=== PATIENT | female | born 1990 | race Caucasian/White ===

== ENCOUNTER → 2016-07-06 | Outpatient (CLI) | payer OTHER ==
[~2016-07-06] MED LIST: ACET50TA PO; DOCU10CA PO; FIOR1CAP PO; IBUP800T23 PO; IBUP80TA PO; PREN29TA4 PO; STOO100C PO; TYLE325T5 PO
[2016-07-06 16:42] LABS: ALBUMIN 3.5 GM/DL (3.2-5.2); ALBUMIN/GLOBULIN RATIO 1.06 (1.00-1.93); ALKALINE PHOSPHATASE 197 U/L (45-117); ALT/SGPT 19 U/L (12-78); ANION GAP 8 MEQ/L (8-16); AST/SGOT 15 U/L (15-37); BILIRUBIN,TOTAL 0.3 MG/DL (0.2-1.0); BLOOD UREA NITROGEN 11 MG/DL (7-18); CALCIUM LEVEL 8.8 MG/DL (8.5-10.1); CARBON DIOXIDE LEVEL 26 MEQ/L (21-32); CHLORIDE LEVEL 108 MEQ/L (98-107); CHOLESTEROL LEVEL 103 MG/DL (<200); CREATININE FOR GFR 0.66 MG/DL (0.55-1.02); GLOMERULAR FILTRATION RATE > 60.0 (>60); GLUCOSE, FASTING 96 MG/DL (70-105); POTASSIUM SERUM 4.9 MEQ/L (3.5-5.1); SODIUM LEVEL 142 MEQ/L (136-145); TOTAL PROTEIN 6.8 GM/DL (6.4-8.2); TRIGLYCERIDES LEVEL 168 MG/DL (<150)
[2016-07-06 16:46] LABS: BASO % 0.3 % (0.0-1.0); EOS # 0.2 K/mm3 (0.0-0.50); LARGE UNSTAINED CELL # 0.1 K/mm3 (0.0-0.4); LYMPH # 2.4 K/mm3 (1.5-6.5); LYMPH % 23.4 % (24.0-44.0); MEAN CORPUSCULAR HGB CONC 32.1 g/dl (32.0-36.5); MEAN CORPUSCULAR VOLUME 80.9 fl (80.0-96.0); MONO # 0.5 K/mm3 (0.0-0.8); MONO % 5.1 % (0.0-5.0); NEUTROPHILS # 6.6 K/mm3 (1.8-7.7); NEUTROPHILS % 68.2 % (36.0-66.0); PLATELET COUNT, AUTOMATED 330 k/mm3 (150-450); RED CELL DISTRIBUTION WIDTH 13.9 % (11.5-14.5); WHITE BLOOD COUNT 9.6 K/mm3 (4.0-10.0)
== END ==
LOC: M SMT 11:35
PROVIDERS: ATTEND Family Medicine Addiction Medicine
DX: Z00.00 Encounter for general adult medical examination without abnormal findings (principal); Z13.29 Encounter for screening for other suspected endocrine disorder; Z13.0 Encounter for screening for diseases of the blood and blood-forming organs and certain disorders involving the immune mechanism; F32.9 Major depressive disorder, single episode, unspecified

== ENCOUNTER → 2016-07-13 | Outpatient (CLI) | payer OTHER ==
--- NOTE | 2016-07-13 15:52 | REP ---
MRI LUMBAR SPINE WITHOUT CONTRAST: HISTORY: Back pain. There is no disc bulge or herniation at the L1-2 through L3-4 and L5-S1 levels. The nerves exit the neural foramina without compression. A diffuse disc bulge is present at the L4-5 level. There is minimal compression of the thecal sac. The L4 nerves exit the neural foramina without compression. The conus medullaris is normal in appearance terminating at the level of the T12-L1 intervertebral disc. Normal signal intensity is present in the lumbar intervertebral discs and vertebral bodies. IMPRESSION: Diffuse disc bulge at the L4-5 level with minimal thecal sac compression. Signed by Perry Florian MD 07/13/2016 04:10 P
== END ==
LOC: M RAD 14:16
PROVIDERS: ATTEND Family Medicine Addiction Medicine
DX: M51.06 Intervertebral disc disorders with myelopathy, lumbar region (principal)

== ENCOUNTER → 2016-08-11 | Outpatient (CLI) | payer OTHER ==
[2016-08-11 14:08] LABS: ALBUMIN 3.5 GM/DL (3.2-5.2); ALBUMIN/GLOBULIN RATIO 1.03 (1.00-1.93); ALKALINE PHOSPHATASE 204 U/L (45-117); ALT/SGPT 21 U/L (12-78); ANION GAP 9 MEQ/L (8-16); AST/SGOT 18 U/L (15-37); BILIRUBIN,TOTAL 0.4 MG/DL (0.2-1.0); BLOOD UREA NITROGEN 7 MG/DL (7-18); CALCIUM LEVEL 9.1 MG/DL (8.5-10.1); CARBON DIOXIDE LEVEL 26 MEQ/L (21-32); CHLORIDE LEVEL 106 MEQ/L (98-107); CREATININE FOR GFR 0.57 MG/DL (0.55-1.02); GLOMERULAR FILTRATION RATE > 60.0 (>60); GLUCOSE, FASTING 89 MG/DL (70-105); POTASSIUM SERUM 4.3 MEQ/L (3.5-5.1); SODIUM LEVEL 141 MEQ/L (136-145); TOTAL PROTEIN 6.9 GM/DL (6.4-8.2)
== END ==
LOC: M SMT 11:01
PROVIDERS: ATTEND Family Medicine Addiction Medicine
DX: R94.5 Abnormal results of liver function studies (principal)

== ENCOUNTER → 2016-09-15 | Outpatient (CLI) | payer OTHER ==
--- NOTE | 2016-09-15 09:39 | REP ---
Clinical: Abnormal liver function tests. Comparison: 11/17/2014. Findings: The liver is normal in contour, size, and overall echo texture with a 9 mm hyperechoic focus in the inferior aspect of the right lobe suggesting small hemangioma. Visualized portions of the pancreas are normal, but incompletely evaluated due to interposed bowel gas. The gallbladder again demonstrates a small 4 mm benign appearing polyp essentially unchanged from prior examination. No gallstones, wall thickening, or pericholecystic fluid is appreciated. No biliary ductal dilatation is noted and the common bile duct measures 2.1 mm diameter. The right kidney demonstrates increased medullary echo texture suggesting the possibility of underlying medullary nephrocalcinosis without hydronephrosis. Right kidney measures 11.8 x 6.1 x 4.8 cm. No ascites. Impression: 1. Liver demonstrates 9 mm benign hemangioma. 2. Gallbladder demonstrates relatively stable 4 mm benign appearing polyp. 3. Suggestions for medullary nephrocalcinosis without hydronephrosis or obvious focal nephrolithiasis. Signed by Josh Rae MD 09/15/2016 09:31 A
== END ==
LOC: M RAD 08:44
PROVIDERS: ATTEND Family Medicine Addiction Medicine
DX: R94.5 Abnormal results of liver function studies (principal); D18.00 Hemangioma unspecified site; K82.4 Cholesterolosis of gallbladder; E83.59 Other disorders of calcium metabolism

== ENCOUNTER → 2016-11-02 | Outpatient (REF) | payer OTHER ==
[~2016-11-02] MED LIST changes: +ALLO100T PO; +BACT800T5 PO; +FLOM5CAP PO; +IBUP1TAB7 PO; -IBUP800T23 PO; +KETO10TAB PO; +MULT1CHW26 PO; +NORC1TAB4 PO; +POTA4.25 PO; +TESS100C PO; +VICO5TAB16 PO
== END ==
LOC: M LAB REF 17:01
PROVIDERS: ATTEND Obstetrics & Gynecology
DX: Z12.4 Encounter for screening for malignant neoplasm of cervix (principal)

== ENCOUNTER → 2016-11-27 | Outpatient (CLI) | payer OTHER ==
--- NOTE | 2016-11-27 12:18 | REP ---
RENAL AND BLADDER ULTRASOUND: Real-time sonographic evaluation of kidneys performed and demonstrates both kidneys to be normal in size and echotexture, right kidney measuring 11.0 x 6.3 x 5.2 cm, and left kidney 11.3 x 5.7 x 6.1 cm. There is no hydronephrosis of the right kidney. Left kidney demonstrates very mild pelvocaliectasis in the lower pole without other evidence of hydronephrosis. No definite renal stones are seen. Urinary bladder is not optimally distended and not optimally evaluated, although bilateral ureteral jets are seen in the urinary bladder with Doppler color evaluation. IMPRESSION: Very mild left lower pole pelvocaliectasis. Otherwise, no evidence of hydronephrosis. No definite renal stones seen sonographically. There are bilateral ureteral jets in the urinary bladder. Signed by Chris Shah MD 11/28/2016 08:39 A
== END ==
LOC: M RAD 10:26
PROVIDERS: ATTEND Internal Medicine Nephrology
DX: N20.0 Calculus of kidney (principal)

== ENCOUNTER 2017-01-09 19:56 | Emergency (ER) | payer OTHER ==
[~2017-01-09] VITALS: Ht 175.3 cm; Wt 88.6 kg
[~2017-01-09 19:56] MED LIST changes: -ALLO100T PO; -BACT800T5 PO; -FLOM5CAP PO; -KETO10TAB PO; -MULT1CHW26 PO; -NORC1TAB4 PO; -POTA4.25 PO; -TESS100C PO; -VICO5TAB16 PO
[2017-01-09 20:10] VITALS: BP 143/75
[2017-01-09] MEDS ORDERED: POTA4.25 PO (20:17)
[2017-01-09] MEDS ORDERED: ALLO100T PO (20:17)
[2017-01-09] MEDS ORDERED: KETOROLAC 30 MG/ML VIAL (J1885) IV ONE (22:30)
[2017-01-09] MEDS ORDERED: KETOROLAC 30 MG/ML VIAL (J1885) IM ONE (23:15)
[2017-01-10 00:25] LABS: CONTROL LINE UCG INT CTR LINE PRESENT
[2017-01-10] MEDS ORDERED: TESS100C PO (00:30)
[2017-01-10 00:31] LABS: CALCIUM OXALATE CRYSTALS SMALL
--- NOTE | 2017-01-10 01:53 | REPUSA ---
CLINICAL HISTORY: Left flank pain. TECHNIQUE: Multiple axial, sagittal and coronal CT images were obtained through the abdomen and pelvi s without administration of oral or IV contrast material. COMMENTS: 4.2 mm obstructing stone of the left ureter at L3 level. Moderate left hydroureteronephrosis. Left renal stones with the largest measuring 7 mm. The liver is of uniform attenuation without mass or defect. There is no intra or extrahepatic biliary ductal dilatation. The spleen is normal. The gallbladder is within normal limits. The pancreas is of normal contour and attenuation characteristics. There is no evidence of adrenal mass. There is no evidence for appendicitis. There is no bowel wall thickening. No evidence for small or la rge bowel obstruction. There is no evidence of abdominal ascites or lymphadenopathy. There is no evidence of intrinsic or extrinsic bladder mass. There is no pelvic ascites or lymphadeno kong. Images of the lung bases show no evidence of pleural or parenchymal mass. There are no pleural effusi ons. The bony structures are free of lytic or blastic lesions. Multilevel degenerative changes are seen in volving the thoracolumbar spine. Scattered calcifications are seen involving the aorta and major branches compatible with atherosclero sis. IMPRESSION: Obstructing stone in the proximal left ureter. Left nephrolithiasis. Thank you for your kind referral of this patient.
[2017-01-10] MEDS ORDERED: NORCO, ANEXSIA 5/325MG TABLET (HYDROcodone/ACETAMINOPHEN) PO ONE (02:30)
[2017-01-10] MEDS ORDERED: ONDANSETRON 4 MG ORAL DISINTEGRATING TAB (S0181) SL ONE (02:30)
[2017-01-29] MEDS ORDERED: MULT1CHW26 PO (07:55)
== END 2017-01-10 03:06 | disposition home or self-care (01) ==
LOC: M ED 19:56
DX: N13.2 Hydronephrosis with renal and ureteral calculous obstruction (principal); N23 Unspecified renal colic; R30.0 Dysuria; Z87.442 Personal history of urinary calculi; Z87.891 Personal history of nicotine dependence; Z79.899 Other long term (current) drug therapy
CPT/HCPCS: 74176; 81001; 81025; 84703; 87086; 96372; 99283; J1885

== ENCOUNTER 2017-01-20 19:50 | Emergency (ER) | payer OTHER ==
[~2017-01-20] VITALS: Ht 154.9 cm; Wt 88.2 kg
[~2017-01-20 19:50] MED LIST changes: +ALLO100T PO; +POTA4.25 PO; +TESS100C PO
[2017-01-20] MEDS ORDERED: VICO5TAB16 PO (20:04)
[2017-01-20] MEDS ORDERED: KETOROLAC 30 MG/ML VIAL (J1885) IV ONE (20:45)
[2017-01-20] MEDS ORDERED: NS 1,000 ML IV ONE (20:45)
[2017-01-20 21:22] LABS: ADD MORPHOLOGY? NO; BASO % 0.3 % (0.0-1.0); EOS # 0.1 10^3/uL (0.0-0.50); EOS % 0.7 % (0.0-3.0); IMMATURE GRANULOCYTE % 0.4 % (0-0); LYMPH # 2.5 10^3/uL (1.5-6.5); LYMPH % 21.8 % (24.0-44.0); MEAN CORPUSCULAR HGB CONC 32.3 g/dl (32.0-36.5); MEAN CORPUSCULAR VOLUME 80.6 fl (80.0-96.0); MONO # 0.7 10^3/uL (0.0-0.8); MONO % 5.9 % (0.0-5.0); NEUTROPHILS % 70.9 % (36.0-66.0); PLATELET COUNT, AUTOMATED 338 10^3/uL (150-450); RED CELL DISTRIBUTION WIDTH 13.8 % (11.5-14.5); WHITE BLOOD COUNT 11.3 10^3/uL (4.0-10.0)
[2017-01-20 21:53] LABS: ALBUMIN 3.9 GM/DL (3.2-5.2); ALBUMIN/GLOBULIN RATIO 1.08 (1.00-1.93); ALKALINE PHOSPHATASE 204 U/L (45-117); ALT/SGPT 20 U/L (12-78); ANION GAP 6 MEQ/L (8-16); AST/SGOT 12 U/L (15-37); BILIRUBIN,DIRECT < 0.1 MG/DL (0.0-0.2); BILIRUBIN,TOTAL 0.2 MG/DL (0.2-1.0); BLOOD UREA NITROGEN 11 MG/DL (7-18); CALCIUM LEVEL 9.3 MG/DL (8.5-10.1); CARBON DIOXIDE LEVEL 27 MEQ/L (21-32); CHLORIDE LEVEL 107 MEQ/L (98-107); CREATININE FOR GFR 0.65 MG/DL (0.55-1.02); GLOMERULAR FILTRATION RATE > 60.0 (>60); GLUCOSE, FASTING 100 MG/DL (70-105); POTASSIUM SERUM 4.3 MEQ/L (3.5-5.1); SODIUM LEVEL 140 MEQ/L (136-145); TOTAL PROTEIN 7.5 GM/DL (6.4-8.2)
--- NOTE | 2017-01-20 23:40 | REPUSA ---
CLINICAL HISTORY: Left flank pain. Ureteral calculus. TECHNIQUE: CT abdomen and pelvis without contrast. Total DLP 631 mGy*cm COMPARISON: January 10, 2017. CT ABDOMEN WITHOUT CONTRAST: Lung bases: No lung base infiltrate or effusion. Liver: No intrahepatic ductal dilation. Gallbladder: Normally distended. Pancreas: No pancreatic duct dilation. Bowel loops: Nondistended. Spleen: Normal size. Adrenals: Normal size. Right kidney: No stones or hydronephrosis. Left kidney: 5 mm stone in the proximal left ureter produces mild hydronephrosis. Additional 7 mm melly al stone. Aorta: Normal caliber. Peritoneum: No free air. Anterior abdominal wall: Small fatty umbilical hernia. CT PELVIS WITHOUT CONTRAST: Colon: Mildly distended with stool. Appendix: Normal appendix is seen. Bladder: Normally distended. Pelvic organs: Unremarkable. Peritoneum: No fluid. Skeleton: No acute findings. IMPRESSION: 1. 5 mm stone in the proximal left ureter produces mild hydronephrosis. Compared to the prior exam, t he stone has progressed approximately 2 cm distal to its previous location. 2. Mild distention of the left-sided colon with stool.
[2017-01-20] MEDS ORDERED: NORC1TAB4 PO (23:46)
[2017-01-20] MEDS ORDERED: FLOM5CAP PO (23:46)
[2017-01-20] MEDS ORDERED: KETO10TAB PO (23:46)
[2017-01-20 23:53] VITALS: BP 142/77
[2017-01-29] MEDS ORDERED: MULT1CHW26 PO (07:55)
== END 2017-01-21 00:09 | disposition home or self-care (01) ==
LOC: M ED 19:50
DX: N20.1 Calculus of ureter (principal); J45.909 Unspecified asthma, uncomplicated; E28.2 Polycystic ovarian syndrome; F41.9 Anxiety disorder, unspecified; F33.9 Major depressive disorder, recurrent, unspecified; F43.10 Post-traumatic stress disorder, unspecified; Z79.899 Other long term (current) drug therapy; Z87.442 Personal history of urinary calculi; Z87.891 Personal history of nicotine dependence; Z82.49 Family history of ischemic heart disease and other diseases of the circulatory system; Z98.890 Other specified postprocedural states
CPT/HCPCS: 74176; 80048; 80076; 81001; 81025; 83605; 83690; 85025; 96361; 96374; 99283; J1885

== ENCOUNTER → 2017-01-23 | Outpatient (CLI) | payer MEDICARE, OTHER ==
[~2017-01-23] MED LIST changes: +BACT800T5 PO; +FLOM5CAP PO; +KETO10TAB PO; +MULT1CHW26 PO; +NORC1TAB4 PO; +VICO5TAB16 PO
[2017-01-23 14:05] LABS: INR 0.98
[2017-01-23 14:23] LABS: CONTROL LINE HCG INT CTR LINE PRESENT
== END ==
LOC: M SMT 12:01
PROVIDERS: ATTEND Nurse Practitioner Women's Health
DX: Z01.812 Encounter for preprocedural laboratory examination (principal); N13.2 Hydronephrosis with renal and ureteral calculous obstruction

== ENCOUNTER 2017-01-31 11:22 | Day surgery (SDC) | payer OTHER ==
[~2017-01-31] VITALS: Ht 154.9 cm; Wt 89.8 kg
[~2017-01-31 11:22] MED LIST changes: -BACT800T5 PO
[2017-01-31] MEDS ORDERED: LR 1,000 ML IV ONE (11:30)
[2017-01-31] MEDS ORDERED: LIDOCAINE 1% MDV 20ML VIAL SQ PRN (11:30)
[2017-01-31] MEDS ORDERED: BACT800T5 PO (12:51)
[2017-01-31 12:58] LABS: CONTROL LINE UCG INT CTR LINE PRESENT
[2017-01-31] MEDS ORDERED: PROPOFOL 200 MG/20 ML VIAL As Ordered ONE (13:32)
[2017-01-31] MEDS ORDERED: LIDOCAINE 2% INJ 100 MG/5 ML SDV (FOR ANES.) As Ordered ONE (13:33)
[2017-01-31] MEDS ORDERED: MIDAZOLAM INJ 2 MG/2 ML VIAL (J2250) As Ordered ONE (13:37)
[2017-01-31] MEDS ORDERED: fentaNYL 100 MCG/2 ML INJECTION (J3010) As Ordered ONE ×2 (13:37→14:49)
[2017-01-31] MEDS ORDERED: CONRAY-60 60% 50ML VIAL (Q9961) As Ordered ONE (14:04)
[2017-01-31] MEDS ORDERED: ONDANSETRON 4MG/2ML VIAL (J2405) As Ordered ONE (14:38)
[2017-01-31] MEDS ORDERED: KETOROLAC 60 MG/2 ML VIAL (J1885) As Ordered ONE (15:50)
[2017-01-31] MEDS: PERCOCET 5MG/325MG TAB PO PRN ×2 (16:25→16:55)
--- NOTE | 2017-01-31 16:27 | REP ---
Retrograde pyelogram: Three views: History: Left-sided nephrolithiasis. 14 seconds of fluoroscopy time is reported. Findings: A sequence of three last image hold fluoroscopic spot radiographs of the left demand document left ureteral cannulation, contrast injection, and double pigtail ureteral stent placement. Signed by Nazario De La Paz MD 01/31/2017 05:04 P
[2017-01-31] MEDS ORDERED: METOCLOPRAMIDE INJ 10MG/2ML VIAL (J2765) IV PRN (16:30)
[2017-01-31] MEDS ORDERED: ONDANSETRON 4MG/2ML VIAL (J2405) IV PRN (16:30)
[2017-01-31] MEDS ORDERED: NORCO, ANEXSIA 5/325MG TABLET (HYDROcodone/ACETAMINOPHEN) PO PRN ×2 (16:30)
[2017-01-31] MEDS ORDERED: LR 1,000 ML IV SCH (16:30)
[2017-01-31] MEDS ORDERED: oxyBUTYnin 5 MG TAB PO PRN (16:30)
[2017-01-31] MEDS: fentaNYL 100 MCG/2 ML INJECTION (J3010) IV PRN ×2 (16:43→17:00)
[2017-01-31 18:59] VITALS: BP 140/71
--- NOTE | 2017-02-01 08:23 | RO ---
DATE OF PROCEDURE: 01/31/2017 PREPROCEDURE DIAGNOSIS: Left kidney and ureteral stones. POSTPROCEDURE DIAGNOSIS: Left kidney and ureteral stones. PROCEDURE: Cystoscopy, left ureteroscopy with laser lithotripsy and basket extraction of stones, left retrograde pyelogram with intraoperative interpretation of images, left ureteral stent placement. SURGEON: Dr. Harmeet Ibarra DIRECTOR OF NATIONAL SALES: None. ANESTHESIA: General. OPERATIVE INDICATIONS: This is a 26-year-old female who has been found to have an obstructing 7 mm proximal left ureteral stone, as well as an 8 mm intrarenal left sided kidney stone. It was recommended that she be brought to the operating room today for the above listed procedure. DESCRIPTION OF PROCEDURE: The patient was brought to the operating room, where general anesthesia was induced. Prophylactic antibiotics were infused. She was then placed in the dorsal lithotomy position and prepped and draped in the usual sterile fashion. A rigid cystoscope was then inserted into the urethral meatus and advanced into the bladder. Once within the bladder, a guidewire was advanced up the left collecting system. A ureteral access sheath was advanced over the wire up into the left collecting system. The stylet was then removed and the wire was secured to the drape to serve as a safety wire. I then went up the ureteral sheath with a flexible ureteroscope and within the proximal ureter the 7 mm stone was seen. The stone was fragmented into smaller pieces using 200 micron laser fiber. All the pieces were then removed with the basket. I then went into the kidney and examined the kidney thoroughly. There was an approximately 8 mm stone in the lower pole calyx. The stone was then fragmented into smaller pieces and all the pieces were removed with the basket. Once that was done, I examined the kidney again and confirmed that there were no large stone fragments remaining. A retrograde pyelogram was performed and was notable for mild to moderate left hydronephrosis and no extravasation. At this point, I withdrew the ureteroscope, along with the access sheath and there were no additional stones within the ureter. I then utilized the previously placed wire to advance a #[id number] x 22-32 cm JJ ureteral stent up into the left collecting system. The wire was then removed, and there were adequate curls of the stent in the left renal pelvis and in the bladder. The bladder was then emptied of all fluid, and this marked the conclusion of the procedure. The patient was then taken out of the dorsal lithotomy position, awakened from anesthesia, and transported to the recovery room in stable condition. ESTIMATED BLOOD LOSS: 0 mL. COMPLICATIONS: None. SPECIMENS: Kidney stone fragments. PLAN: The patient will followup in the clinic in a few weeks for stent removal. SUMIT
== END 2017-01-31 19:00 | disposition home or self-care (01) ==
LOC: M SDC 11:22
PROVIDERS: ATTEND Urology
DX: N20.2 Calculus of kidney with calculus of ureter (principal); K21.9 Gastro-esophageal reflux disease without esophagitis; J45.909 Unspecified asthma, uncomplicated; Z86.59 Personal history of other mental and behavioral disorders; Z86.69 Personal history of other diseases of the nervous system and sense organs; Z87.891 Personal history of nicotine dependence; Z79.3 Long term (current) use of hormonal contraceptives; Z88.7 Allergy status to serum and vaccine
CPT/HCPCS: 52356; 74420; 82360; 84703; 88300; C1769; C1894; C2617

== ENCOUNTER 2017-03-10 13:47 | Emergency (ER) | payer MEDICAID, MEDICARE, OTHER ==
[~2017-03-10] VITALS: Ht 154.9 cm; Wt 89.8 kg
[~2017-03-10 13:47] MED LIST changes: +BACT800T5 PO
[2017-03-10] MEDS ORDERED: NEXP1IMP SC (13:57)
[2017-03-10 15:03] VITALS: BP 123/60
== END 2017-03-10 15:06 | disposition home or self-care (01) ==
LOC: M ED 13:47
DX: J02.9 Acute pharyngitis, unspecified (principal); J45.909 Unspecified asthma, uncomplicated; E28.2 Polycystic ovarian syndrome; F41.9 Anxiety disorder, unspecified; Z88.7 Allergy status to serum and vaccine; Z79.3 Long term (current) use of hormonal contraceptives; Z79.899 Other long term (current) drug therapy; Z87.442 Personal history of urinary calculi

== ENCOUNTER → 2017-03-26 | Outpatient (REF) | payer OTHER ==
[~2017-03-26] MED LIST changes: +NEXP1IMP SC
== END ==
LOC: M SFHCPLAZ 16:19
PROVIDERS: ATTEND Family Medicine
DX: M13.0 Polyarthritis, unspecified (principal); E79.0 Hyperuricemia without signs of inflammatory arthritis and tophaceous disease; Z71.1 Person with feared health complaint in whom no diagnosis is made; Z53.8 Procedure and treatment not carried out for other reasons

== ENCOUNTER → 2017-04-02 | Outpatient (CLI) | payer OTHER ==
[2017-04-02 16:36] LABS: URIC ACID 3.5 MG/DL (2.6-6.0)
--- NOTE | 2017-04-02 17:33 | REP ---
Cervical spine series: Seven views. History: Polyarthropathy. No comparison cervical spine images. Findings: Lateral views done in flexion, extension and neutral position show no subluxation or instability. Vertebral body heights are preserved and alignment is normal. There is degenerative disc narrowing and spur formation at C5-6 consistent with some degree of degenerative disc disease. AP and open mouth odontoid views are unremarkable. Oblique radiographs demonstrate intact neural foramina bilaterally at each cervical level and normally aligned facets. Impression: Mild degenerative disc changes at C5-6. Otherwise negative cervical spine radiographs. Signed by Nazario De La Paz MD 04/02/2017 07:52 P
--- NOTE | 2017-04-02 17:37 | REP ---
Lumbar spine series: Seven views. Lateral flexion and extension views were included. History: Polyarthritis. Comparison study: January 13, 2016. Findings: Lateral views done in flexion and extension show some limitation of flexion/extension range of motion. No subluxation or instability is seen. Vertebral body heights are preserved. Disc spaces are maintained. Pedicles and posterior elements are intact. There is no evidence to suggest spondylolysis or spondylolisthesis. Sacrum and SI joints are intact. Visualized bowel gas pattern is normal. Psoas margins are symmetric. There is a minimal levoconvex curve in the lumbar spine, unchanged from the comparison study. Impression: Minimal levoconvex lumbar curvature. Otherwise normal lumbar spine radiographs. Signed by Nazario De La Paz MD 04/02/2017 07:52 P
--- NOTE | 2017-04-02 17:49 | REP ---
BILATERAL KNEE SERIES: AP and lateral views of bilateral knees performed. There is no acute fracture or dislocation. Joint spaces appear unremarkable. There appears to be a small right knee effusion. IMPRESSION: Small right effusion. Otherwise, negative exam. Signed by Chris Shah MD 04/04/2017 08:59 A
== END ==
LOC: M LAB 15:23
PROVIDERS: ATTEND Family Medicine
DX: M13.0 Polyarthritis, unspecified (principal); E79.0 Hyperuricemia without signs of inflammatory arthritis and tophaceous disease; Z71.1 Person with feared health complaint in whom no diagnosis is made

== ENCOUNTER → 2017-05-11 | Outpatient (REF) | payer OTHER ==
[2017-05-11 20:45] LABS: C REACTIVE PROTEIN QUANTITATIV 1.08 MG/DL (0.00-0.30)
[2017-05-14 14:11] LABS: ANTINUCLEAR ANTIBODIES DIRECT Negative (Negative)
== END ==
LOC: M SFHCPLAZ 12:33
DX: M13.0 Polyarthritis, unspecified (principal)

== ENCOUNTER → 2017-05-28 | Outpatient (REF) | payer OTHER ==
[2017-05-28 20:05] LABS: CHLAMYDIA DNA AMPLIFICATION NEGATIVE (NEGATIVE); GC DNA AMPLIFICATION NEGATIVE (NEGATIVE)
== END ==
LOC: M LAB REF 17:37
DX: Z11.3 Encounter for screening for infections with a predominantly sexual mode of transmission (principal)

== ENCOUNTER → 2017-05-30 | Outpatient (CLI) | payer OTHER | LOC: M RAD 15:01 | DX: R10.2 Pelvic and perineal pain (principal) | CPT/HCPCS: 76856 ==

== ENCOUNTER 2017-07-13 17:34 | Emergency (ER) | payer OTHER ==
[2017-07-13] MEDS: ONDANSETRON 4MG/2ML VIAL (J2405) IV (20:40)
[2017-07-13] MEDS: NS 1,000 ML IV (20:40)
[2017-07-13 20:56] LABS: BASO % 0.3 % (0.0-1.0); EOS # 0.9 10^3/uL (0.0-0.50); EOS % 6.2 % (0.0-3.0); HEMATOCRIT 43.8 % (36.0-47.0); HEMOGLOBIN 14.1 g/dl (12.0-16.0); IMMATURE GRANULOCYTE % 0.3 % (0-3.0); LYMPH # 3.1 10^3/uL (1.5-6.5); LYMPH % 21.1 % (24.0-44.0); MEAN CORPUSCULAR HEMOGLOBIN 26.6 pg (27.0-33.0); MEAN CORPUSCULAR HGB CONC 32.2 g/dl (32.0-36.5); MEAN CORPUSCULAR VOLUME 82.6 fl (80.0-96.0); MONO % 6.8 % (0.0-5.0); NEUTROPHILS # 9.7 10^3/uL (1.8-7.7); NEUTROPHILS % 65.3 % (36.0-66.0); PLATELET COUNT, AUTOMATED 360 10^3/uL (150-450); RED CELL DISTRIBUTION WIDTH 13.4 % (11.5-14.5); WHITE BLOOD COUNT 14.9 10^3/uL (4.0-10.0)
[2017-07-13 20:57] LABS: CONTROL LINE HCG INT CTR LINE PRESENT; HCG, SERUM QUALITATIVE NEGATIVE (NEGATIVE)
[2017-07-13 21:05] LABS: ALBUMIN 3.8 GM/DL (3.2-5.2); ALBUMIN/GLOBULIN RATIO 0.84 (1.00-1.93); ALKALINE PHOSPHATASE 229 U/L (45-117); ALT/SGPT 17 U/L (12-78); ANION GAP 6 MEQ/L (8-16); AST/SGOT 8 U/L (7-37); BILIRUBIN,DIRECT < 0.1 MG/DL (0.0-0.2); BILIRUBIN,TOTAL 0.2 MG/DL (0.2-1.0); BLOOD UREA NITROGEN 8 MG/DL (7-18); CARBON DIOXIDE LEVEL 27 MEQ/L (21-32); CHLORIDE LEVEL 108 MEQ/L (98-107); CREATININE FOR GFR 0.67 MG/DL (0.55-1.30); GLOMERULAR FILTRATION RATE > 60.0 (>60); GLUCOSE, FASTING 92 MG/DL (70-100); LIPASE 114 U/L (73-393); POTASSIUM SERUM 4.2 MEQ/L (3.5-5.1); SODIUM LEVEL 141 MEQ/L (136-145); TOTAL PROTEIN 8.3 GM/DL (6.4-8.2)
[2017-07-13] MEDS: KETOROLAC 30 MG/ML VIAL (J1885) IV (21:15)
[2017-07-13 21:48] LABS: KETONE, URINE AUTO RFX NEGATIVE (NEGATIVE); LEUKOCYTE ESTERASE UR AUTO RFX 1+ (NEGATIVE); MUCUS, URINE RFX SMALL (NEGATIVE); NITRITE, URINE AUTO RFX NEGATIVE (NEGATIVE); RBC, URINE AUTO RFX 1 /HPF (0-3); SPECIFIC GRAVITY UR AUTO RFX 1.006 (1.002-1.035); SQUAM EPITHELIAL CELL UR AURFX 3 /HPF (0-6); TRANSITIONAL EPITHELIAL AU RFX <1 /HPF; WBC, URINE AUTO RFX 3 /HPF (0-3)
[2017-07-14] MEDS: CIPROFLOXACIN 500 MG TAB PO (01:02)
[2017-07-14] MEDS: PHENAZOPYRIDINE 100 MG TAB PO (01:02)
== END 2017-07-14 01:18 | disposition home or self-care (01) ==
LOC: M ED 07-14 01:18
DX: N39.0 Urinary tract infection, site not specified (principal); Z87.442 Personal history of urinary calculi; F17.200 Nicotine dependence, unspecified, uncomplicated; Z88.7 Allergy status to serum and vaccine; Z79.899 Other long term (current) drug therapy
CPT/HCPCS: J2405

== ENCOUNTER 2017-08-30 08:16 | Day surgery (SDC) | payer OTHER ==
[2017-08-30] MEDS: NS 1,000 ML IV (09:00)
[2017-08-30] MEDS ORDERED: PROPOFOL 200 MG/20 ML VIAL As Ordered (09:24)
[2017-08-30] MEDS ORDERED: LIDOCAINE 2% INJ 100 MG/5 ML SDV (FOR ANES.) As Ordered (09:24)
== END 2017-08-30 10:10 | disposition home or self-care (01) ==
LOC: M OPP 08:16
DX: R10.84 Generalized abdominal pain (principal); K58.1 Irritable bowel syndrome with constipation; K56.41 Fecal impaction; K21.9 Gastro-esophageal reflux disease without esophagitis; F41.9 Anxiety disorder, unspecified; F31.9 Bipolar disorder, unspecified; F43.10 Post-traumatic stress disorder, unspecified; G43.909 Migraine, unspecified, not intractable, without status migrainosus; R56.9 Unspecified convulsions; J45.909 Unspecified asthma, uncomplicated; M25.50 Pain in unspecified joint; N18.9 Chronic kidney disease, unspecified; Z87.442 Personal history of urinary calculi; F17.210 Nicotine dependence, cigarettes, uncomplicated; Z88.7 Allergy status to serum and vaccine; Z79.899 Other long term (current) drug therapy
CPT/HCPCS: 45378

== ENCOUNTER → 2017-10-04 | Outpatient (CLI) | payer OTHER ==
[2017-10-04 14:09] LABS: HCG, SERUM QUANTITATIVE < 1.0 MIU/ML
[2017-10-06 14:10] LABS: ANTI RIBOSOMAL ANTIBODIES <0.2 AI (0.0-0.9)
== END ==
LOC: M LAB 13:19
DX: R53.82 Chronic fatigue, unspecified (principal)
CPT/HCPCS: 84443

== ENCOUNTER 2018-02-17 13:26 | Emergency (ER) | payer OTHER | END 2018-02-17 14:54 | disposition home or self-care (01) | LOC: M ED 13:26 | DX: J06.9 Acute upper respiratory infection, unspecified (principal); Z20.828 Contact with and (suspected) exposure to other viral communicable diseases; J45.909 Unspecified asthma, uncomplicated; E28.2 Polycystic ovarian syndrome; K59.00 Constipation, unspecified; F43.10 Post-traumatic stress disorder, unspecified; Z87.442 Personal history of urinary calculi; Z88.7 Allergy status to serum and vaccine; Z79.899 Other long term (current) drug therapy | CPT/HCPCS: 99282 ==

== ENCOUNTER 2018-05-09 15:05 | Emergency (ER) | payer OTHER ==
[~2018-05-09] VITALS: Ht 160 cm; Wt 90.9 kg
[~2018-05-09 15:05] MED LIST changes: -ACET50TA PO; +CIPR-249 PO; +CLAR10CA3 PO; +DULO1CAP3 PO; +FLOM0.4C39 PO; -FLOM5CAP PO; +FLON1SPR NARES; +GABA-843 PO; +LACTPOW PO; +MAPA500T2 PO; +MUCI600T37 PO; +PYRI1TAB5 PO; +VENTAER INH; +VITA50005 PO
[2018-05-09] MEDS ORDERED: INDO25CA (15:22)
[2018-05-09] MEDS ORDERED: LACT10SO3 (15:22)
[2018-05-09] MEDS ORDERED: NAPR-885 (15:22)
[2018-05-09] MEDS ORDERED: CHLO125TA (15:22)
[2018-05-09] MEDS ORDERED: NS 1,000 ML IV ONE (15:30)
[2018-05-09 15:39] LABS: BASO % 0.4 % (0.0-1.0); EOS # 0.2 10^3/uL (0.0-0.50); EOS % 1.5 % (0.0-3.0); HEMATOCRIT 42.4 % (36.0-47.0); LYMPH # 2.1 10^3/uL (1.5-6.5); LYMPH % 19.8 % (24.0-44.0); MEAN CORPUSCULAR HEMOGLOBIN 27.6 pg (27.0-33.0); MEAN CORPUSCULAR VOLUME 83.6 fl (80.0-96.0); MONO # 0.8 10^3/uL (0.0-0.8); MONO % 7.2 % (0.0-5.0); NEUTROPHILS # 7.7 10^3/uL (1.8-7.7); NEUTROPHILS % 70.7 % (36.0-66.0); PLATELET COUNT, AUTOMATED 314 10^3/uL (150-450); RED BLOOD COUNT 5.07 10^6/uL (4.00-5.40); WHITE BLOOD COUNT 10.8 10^3/uL (4.0-10.0)
[2018-05-09] MEDS ORDERED: KETOROLAC 30 MG/ML VIAL (J1885) IV ONE (15:45)
[2018-05-09] MEDS ORDERED: ONDANSETRON 4MG/2ML VIAL (J2405) IV ONE (15:45)
[2018-05-09 15:49] LABS: URINE PREG TEST NEGATIVE (NEGATIVE)
[2018-05-09 15:59] LABS: ALBUMIN 4.1 GM/DL (3.2-5.2); ALT/SGPT 28 U/L (12-78); BILIRUBIN,DIRECT 0.1 MG/DL (0.0-0.2); BILIRUBIN,TOTAL 0.4 MG/DL (0.2-1.0); BLOOD UREA NITROGEN 15 MG/DL (7-18); CALCIUM LEVEL 8.9 MG/DL (8.5-10.1); CARBON DIOXIDE LEVEL 25 MEQ/L (21-32); CHLORIDE LEVEL 108 MEQ/L (98-107); CREATININE FOR GFR 0.59 MG/DL (0.55-1.30); GLOMERULAR FILTRATION RATE > 60.0 (>60); GLUCOSE, FASTING 96 MG/DL (70-100); LIPASE 101 U/L (73-393); POTASSIUM SERUM 4.2 MEQ/L (3.5-5.1); SODIUM LEVEL 140 MEQ/L (136-145); TOTAL PROTEIN 6.8 GM/DL (6.4-8.2)
[2018-05-09] MEDS ORDERED: MORPHINE 4 MG/ML 1ML VIAL/SYRINGE (J2270) IV ONE (16:45)
[2018-05-09] MEDS ORDERED: PHENAZOPYRIDINE 100 MG TAB PO ONE (17:15)
[2018-05-09] MEDS ORDERED: CIPROFLOXACIN 500 MG TAB PO ONE (17:15)
[2018-05-09] MEDS ORDERED: CIPR-249 PO (17:16)
[2018-05-09] MEDS ORDERED: PYRI1TAB5 PO (17:16)
[2018-05-09 17:23] VITALS: BP 99/50
== END 2018-05-09 17:32 | disposition home or self-care (01) ==
LOC: M ED 15:05
DX: N39.0 Urinary tract infection, site not specified (principal); M54.9 Dorsalgia, unspecified; E28.2 Polycystic ovarian syndrome; F41.9 Anxiety disorder, unspecified; Z87.442 Personal history of urinary calculi; Z79.899 Other long term (current) drug therapy; Z88.7 Allergy status to serum and vaccine
CPT/HCPCS: 80048; 80076; 81001; 83690; 84703; 85025; 87086; 96374; 96375; 99284; J1885; J2270; J2405

== ENCOUNTER → 2018-05-28 | Outpatient (CLI) | payer OTHER ==
[~2018-05-28] MED LIST changes: +CHLO125TA; +INDO25CA; +LACT10SO3; +NAPR-885
[2018-05-28 14:15] LABS: BASO # 0.1 10^3/uL (0.0-0.2); BASO % 0.6 % (0.0-1.0); EOS # 0.2 10^3/uL (0.0-0.50); EOS % 2.2 % (0.0-3.0); HEMATOCRIT 40.3 % (36.0-47.0); HEMOGLOBIN 13.2 g/dl (12.0-15.5); LYMPH # 2.4 10^3/uL (1.5-6.5); MEAN CORPUSCULAR HEMOGLOBIN 27.7 pg (27.0-33.0); MEAN CORPUSCULAR HGB CONC 32.8 g/dl (32.0-36.5); MEAN CORPUSCULAR VOLUME 84.7 fl (80.0-96.0); MONO # 0.6 10^3/uL (0.0-0.8); MONO % 6.8 % (0.0-5.0); PLATELET COUNT, AUTOMATED 322 10^3/uL (150-450); RED BLOOD COUNT 4.76 10^6/uL (4.00-5.40); WHITE BLOOD COUNT 8.1 10^3/uL (4.0-10.0)
[2018-05-28 14:32] LABS: HEMOGLOBIN A1c 5.5 %
[2018-05-28 14:36] LABS: ALBUMIN 3.4 GM/DL (3.2-5.2); ALT/SGPT 24 U/L (12-78); BILIRUBIN,TOTAL 0.2 MG/DL (0.2-1.0); BLOOD UREA NITROGEN 15 MG/DL (7-18); CALCIUM LEVEL 8.8 MG/DL (8.5-10.1); CARBON DIOXIDE LEVEL 26 MEQ/L (21-32); CHLORIDE LEVEL 107 MEQ/L (98-107); CHOLESTEROL LEVEL 99 MG/DL (<200); GLOMERULAR FILTRATION RATE > 60.0 (>60); GLUCOSE, FASTING 97 MG/DL (70-100); HDL CHOLESTEROL 45 MG/DL (>40); LDL CHOLESTEROL 29 MG/DL (<100); NON-HDL-C 54 MG/DL; POTASSIUM SERUM 4.2 MEQ/L (3.5-5.1); SODIUM LEVEL 140 MEQ/L (136-145); TOTAL PROTEIN 6.5 GM/DL (6.4-8.2); TRIGLYCERIDES LEVEL 124 MG/DL (<150)
[2018-05-28 14:50] LABS: TOTAL 25(OH) VITAMIN D 18.7 NG/ML (30.0-100.0)
== END ==
LOC: M LAB 12:22
PROVIDERS: ATTEND Nurse Practitioner Psychiatric/Mental Health
DX: Z51.81 Encounter for therapeutic drug level monitoring (principal); Z13.1 Encounter for screening for diabetes mellitus; Z13.6 Encounter for screening for cardiovascular disorders; E55.9 Vitamin D deficiency, unspecified; F41.8 Other specified anxiety disorders; Z79.899 Other long term (current) drug therapy

== ENCOUNTER → 2018-05-28 | Outpatient (CLI) | payer OTHER ==
[2018-05-28 14:31] LABS: BLOOD UREA NITROGEN 15 MG/DL (7-18); CALCIUM LEVEL 8.5 MG/DL (8.5-10.1); CARBON DIOXIDE LEVEL 25 MEQ/L (21-32); CHLORIDE LEVEL 107 MEQ/L (98-107); GLOMERULAR FILTRATION RATE > 60.0 (>60); GLUCOSE, FASTING 98 MG/DL (70-100); POTASSIUM SERUM 4.2 MEQ/L (3.5-5.1); SODIUM LEVEL 140 MEQ/L (136-145)
[2018-05-28 14:32] LABS: HEMOGLOBIN A1c 5.4 %
[2018-05-28 14:50] LABS: TOTAL 25(OH) VITAMIN D 19.3 NG/ML (30.0-100.0)
== END ==
LOC: M LAB 12:27
PROVIDERS: ATTEND Family Medicine
DX: Z13.1 Encounter for screening for diabetes mellitus (principal); E55.9 Vitamin D deficiency, unspecified

== ENCOUNTER 2018-06-01 20:51 | Emergency (ER) | payer OTHER ==
[~2018-06-01] VITALS: Ht 160 cm; Wt 93.2 kg
[2018-06-01 23:27] VITALS: BP 119/68
[2018-06-01] MEDS ORDERED: BUPIVACAINE LIPOSOME/PF 1.3% 20ML VIAL (13.3MG/ML)(EXPAREL)(C9290 PER1MG) INFIL ONE (23:45)
[2018-06-01] MEDS ORDERED: KETOROLAC 60 MG/2 ML VIAL (J1885) IM ONE (23:45)
--- NOTE | 2018-06-03 10:51 | REP ---
RIGHT RIB SERIES: Four views right ribs are performed. There is no fracture or bone lesion. An accompanying PA view of the chest demonstrates no acute infiltrate or pneumothorax. There is no pleural effusion. The heart and mediastinum are within normal limits. There is mild curvature of the thoracic spine convex to the right. IMPRESSION: Essentially negative right rib series. Electronically Signed by Chris Shah MD 06/03/2018 10:52 P
== END 2018-06-02 00:29 | disposition home or self-care (01) ==
LOC: M ED 20:51
DX: S23.41XA Sprain of ribs, initial encounter (principal); X50.1XXA Overexertion from prolonged static or awkward postures, initial encounter; Y92.89 Other specified places as the place of occurrence of the external cause; J45.909 Unspecified asthma, uncomplicated; F41.9 Anxiety disorder, unspecified; F32.9 Major depressive disorder, single episode, unspecified; Z87.442 Personal history of urinary calculi; F17.200 Nicotine dependence, unspecified, uncomplicated; Z88.7 Allergy status to serum and vaccine; Z79.899 Other long term (current) drug therapy
CPT/HCPCS: 64420; 71101; 96372; 99283; C9290; J1885

== ENCOUNTER → 2018-07-04 | Outpatient (REF) | payer OTHER ==
[2018-07-04 14:31] LABS: URINE PREG TEST NEGATIVE (NEGATIVE)
[2018-07-04 14:34] LABS: APPEARANCE, URINE CLEAR (CLEAR); BACTERIA, URINE AUTO NEGATIVE (NEGATIVE); BILIRUBIN, URINE AUTO NEGATIVE (NEGATIVE); BLOOD, URINE BLOOD NEGATIVE (NEGATIVE); COLOR, URINE YELLOW (YELLOW); GLUCOSE, URINE (UA) AUTO NEGATIVE (NEGATIVE); KETONE, URINE AUTO NEGATIVE (NEGATIVE); LEUKOCYTE ESTERASE, URINE AUTO NEGATIVE (NEGATIVE); NITRITE, URINE AUTO NEGATIVE (NEGATIVE); PROTEIN, URINE AUTO NEGATIVE (NEGATIVE); RBC, URINE AUTO 0 /HPF (0-3); SPECIFIC GRAVITY URINE AUTO 1.009 (1.002-1.035); SQUAMOUS EPITHELIAL CELL UR AU 1 /HPF (0-6); UROBILINOGEN, URINE AUTO 0.2 mg/dL (0.0-2.0); WBC, URINE AUTO 1 /HPF (0-3)
== END ==
LOC: M SMT 13:32
PROVIDERS: ATTEND Nurse Practitioner Family
DX: R10.9 Unspecified abdominal pain (principal)

== ENCOUNTER → 2018-07-08 | Outpatient (CLI) | payer OTHER ==
--- NOTE | 2018-07-09 07:04 | REP ---
Clinical: Right flank pain. Technique: Axial noncontrast images from the lung bases to the pubic symphysis with coronal and sagittal re-formations. Comparison: 01/20/2017. Findings: Lung bases are clear. Visualized heart and pericardium normal. Liver, spleen, pancreas, gallbladder, bilateral adrenal glands and kidneys are normal. Specifically, no perinephric stranding, hydroureteronephrosis, intrarenal or obstructing ureteral calculi identified. The enteric system is without obstruction or acute inflammatory process. Normal terminal ileum and appendix identified in the right lower quadrant. Pelvis demonstrates normal bladder and age-appropriate uterus/adnexa. No ascites. No free air. No adenopathy. Abdominal aorta without aneurysm. Musculoskeletal structures intact. Impression: Normal noncontrast CT of the abdomen and pelvis. Electronically Signed by Josh Rae MD 07/09/2018 06:55 A
== END ==
LOC: M RAD 17:11
PROVIDERS: ATTEND Nurse Practitioner Family
DX: R10.9 Unspecified abdominal pain (principal)

== ENCOUNTER 2018-07-18 10:05 | Outpatient (CLI) | payer OTHER ==
--- NOTE | 2018-07-24 10:14 | SLEEPHOME ---
DATE OF PROCEDURE: 07/18/2018 ORDERED BY: Kathe [facility] home sleep testing was performed due to concern for the obstructive sleep apnea syndrome in this patient with a history of excessive somnolence, snoring, morning headaches and nonrestorative sleep. For testing a nocturnal T3 respiratory monitoring device was used. Continuous record was made of pulse, oxygen saturation, airflow, chest, abdominal strain and body position. 9 hours and 59 minutes of data were reviewed. There were 7 hours and 35 minutes marked as time in bed. During the interval marked time in bed there were 39 respiratory events identified of 10 seconds in duration or greater for a respiratory event index of 5.1. Events were both mixed, obstructive and central with 19 central and mixed events. Baseline pulse rate of 77 beats per minute, pulse rate ranged from 55-110. Baseline saturation 94%. Saturations fell as low as 86%. Testing was performed in both the supine and nonsupine positions. IMPRESSION: Abnormal home sleep testing with repetitive respiratory events and oxygen desaturations to 86% with a respiratory event index of 5.1 is consistent with the obstructive sleep apnea syndrome. RECOMMENDATIONS: Given the patient's symptoms, referral for formal sleep evaluation and in laboratory pressure titration recommended.
== END 2018-07-19 14:30 ==
LOC: M SLEEP HO 10:05
PROVIDERS: ATTEND Nurse Practitioner Family
DX: R06.83 Snoring (principal)

== ENCOUNTER → 2018-08-16 | Outpatient (REF) | payer OTHER ==
[~2018-08-16] MED LIST changes: -NORC1TAB4 PO; +NORC1TAB7 PO; -VICO5TAB16 PO; +VICO5TAB17 PO
[2018-08-18 00:06] LABS: EBV AB TO NUCLEAR ANTIGEN >600.0 U/mL (0.0-17.9); EBV VIRAL CAPSID AG IgG >600.0 U/mL (0.0-17.9); EBV VIRAL CAPSID AG IgM <36.0 U/mL (0.0-35.9)
== END ==
LOC: M LAB REF 12:56
PROVIDERS: ATTEND Physician Assistant
DX: J02.9 Acute pharyngitis, unspecified (principal)

== ENCOUNTER → 2018-09-02 | Outpatient (CLI) | payer OTHER | LOC: M SMT 14:41 | PROVIDERS: ATTEND Obstetrics & Gynecology | DX: Z32.01 Encounter for pregnancy test, result positive (principal); Z3A.00 Weeks of gestation of pregnancy not specified ==

== ENCOUNTER 2018-10-09 07:29 | Day surgery (SDC) | payer OTHER ==
[~2018-10-09] VITALS: Ht 154.9 cm; Wt 92.0 kg
[~2018-10-09 07:29] MED LIST changes: +ABIL20TA5 PO; -CHLO125TA; +CHLO125TA PO; +NS 1,000 ML IV ONE; +VITA500045 PO
[2018-10-09] MEDS ORDERED: PROPOFOL 200 MG/20 ML VIAL As Ordered ONE (08:36)
[2018-10-09] MEDS ORDERED: LIDOCAINE 2% INJ 100 MG/5 ML SDV (FOR ANES.) As Ordered ONE (08:36)
--- NOTE | 2018-10-09 09:17 | ROOR ---
Patient Name: Jackeline Porras Procedure Date: 10/09/2018 8:48 AM Date of : 1990 Age: 28 Room: [facility] Gender: Female Note Status: Finalized Procedure: Colonoscopy Indications: Rectal bleeding Providers: Miguel Angel Jauregui MD Referring MD: Lonnie HUTCHINS MD Requesting Provider: Medicines: Monitored Anesthesia Care Complications: No immediate complications. Procedure: Pre-Anesthesia Assessment: - Prior to the procedure, a History and Physical was performed, and patient medications and allergies were reviewed. The patient is competent. The risks and benefits of the procedure and the sedation options and risks were discussed with the patient. All questions were answered and informed consent was obtained. Patient identification and proposed procedure were verified by the physician, the nurse and the anesthesiologist in the endoscopy suite. Mental Status Examination: alert and oriented. Airway Examination: normal oropharyngeal airway and neck mobility. Respiratory Examination: clear to auscultation. CV Examination: normal. Prophylactic Antibiotics: The patient does not require prophylactic antibiotics. Prior Anticoagulants: The patient has taken no previous anticoagulant or antiplatelet agents. ASA Grade Assessment: II - A patient with mild systemic disease. After reviewing the risks and benefits, the patient was deemed in satisfactory condition to undergo the procedure. The anesthesia plan was to use monitored anesthesia care (MAC). Immediately prior to administration of medications, the patient was re-assessed for adequacy to receive sedatives. The heart rate, respiratory rate, oxygen saturations, blood pressure, adequacy of pulmonary ventilation, and response to care were monitored throughout the procedure. The physical status of the patient was re-assessed after the procedure. The Colonoscope was introduced through the anus and advanced to the cecum, identified by appendiceal orifice and ileocecal valve. The colonoscopy was performed without difficulty. The patient tolerated the procedure well. The quality of the bowel preparation was good. Findings: The perianal and digital rectal examinations were normal. The entire examined colon appeared normal. The retroflexed view of the distal rectum and anal verge was normal and showed no anal or rectal abnormalities. no enlarged hemorrhoids on retroflexion Impression: - The entire examined colon is normal. - No specimens collected. Recommendation: - Discharge patient to home (ambulatory). - High fiber diet indefinitely. - Use original regular Metamucil one tablespoon PO BID indefinitely. Miguel Angel Jauregui MD Miguel Angel Jauregui MD 10/09/2018 9:17:19 AM Electronically signed by Miguel Angel Jauregui MD Number of Addenda: 0 Note Initiated On: 10/09/2018 8:48 AM Estimated Blood Loss: Estimated blood loss: none.
[2018-10-09 09:48] VITALS: BP 137/83
== END 2018-10-09 09:51 | disposition home or self-care (01) ==
LOC: M OPP 07:29
PROVIDERS: ATTEND Surgery
DX: K62.5 Hemorrhage of anus and rectum (principal)

== ENCOUNTER → 2018-11-27 | Outpatient (REF) ==
[~2018-11-27] MED LIST changes: +AZIT500T2 PO; -DULO1CAP3 PO; +DULO1CAP6 PO; +MM S100C PO; +MUCI600T31 PO; -NS 1,000 ML IV ONE; -STOO100C PO
--- NOTE | 2018-11-28 02:37 | REP ---
Clinical: Back pain. Technique: AP, lateral, coned-down views of the lumbosacral spine. Findings: Alignment maintained. Vertebral bodies intact. No acute fracture / compression injury or subluxation. Impression: Normal lumbosacral spine radiographs. Electronically Signed by Josh Rae MD 11/28/2018 02:28 A
== END ==
LOC: M SMT 11:21
PROVIDERS: ATTEND Internal Medicine
DX: Z00.00 Encounter for general adult medical examination without abnormal findings (principal)

== ENCOUNTER 2018-12-02 11:13 | Emergency (ER) | payer OTHER ==
[~2018-12-02] VITALS: Ht 154.9 cm; Wt 90.1 kg
[~2018-12-02 11:13] MED LIST changes: -AZIT500T2 PO; +INDO-16; -INDO25CA; -MUCI600T31 PO
[2018-12-02 11:15] VITALS: BP 110/71
[2018-12-02] MEDS ORDERED: AZIT500T2 PO (12:17)
[2018-12-02] MEDS ORDERED: MUCI600T31 PO (12:17)
--- NOTE | 2018-12-02 13:52 | REP ---
REASON FOR EXAM: Cough. COMPARISON: No priors. FINDINGS: The superior mediastinal structures are midline. The cardiac silhouette is unremarkable in size, shape, and position. The diaphragmatic surfaces of the lungs are regular, and the costophrenic angles are clear. The pulmonary blake are clear. The imaged osseous structures are intact. IMPRESSION: There is no acute cardiopulmonary disease. Electronically Signed by Abbe Greco DO 12/02/2018 04:45 P
== END 2018-12-02 12:24 | disposition home or self-care (01) ==
LOC: M ED 11:13
DX: J41.1 Mucopurulent chronic bronchitis (principal); E28.2 Polycystic ovarian syndrome; F43.10 Post-traumatic stress disorder, unspecified; Z79.899 Other long term (current) drug therapy; Z88.7 Allergy status to serum and vaccine

== ENCOUNTER → 2019-02-24 | Outpatient (REF) | payer OTHER ==
[~2019-02-24] MED LIST changes: +AZIT500T5 PO; +MUCI600T31 PO
[2019-02-24 12:42] LABS: BLOOD UREA NITROGEN 8 MG/DL (7-18); CALCIUM LEVEL 9.4 MG/DL (8.5-10.1); CARBON DIOXIDE LEVEL 28 MEQ/L (21-32); CHLORIDE LEVEL 107 MEQ/L (98-107); CREATININE FOR GFR 0.62 MG/DL (0.55-1.30); GLOMERULAR FILTRATION RATE > 60.0 (>60); GLUCOSE, FASTING 94 MG/DL (70-100); HCG, SERUM QUANTITATIVE < 1.0 MIU/ML; POTASSIUM SERUM 4.4 MEQ/L (3.5-5.1); SODIUM LEVEL 141 MEQ/L (136-145)
[2019-02-25 14:07] LABS: ANTI RIBOSOMAL ANTIBODIES <0.2 AI (0.0-0.9)
== END ==
LOC: M SFHCPLAZ 09:57
PROVIDERS: ATTEND Family Medicine
DX: R53.82 Chronic fatigue, unspecified (principal); Z13.1 Encounter for screening for diabetes mellitus; M13.0 Polyarthritis, unspecified

== ENCOUNTER → 2019-03-05 | Outpatient (REF) | payer OTHER | LOC: M LAB REF 08:38 | PROVIDERS: ATTEND Obstetrics & Gynecology | DX: Z12.4 Encounter for screening for malignant neoplasm of cervix (principal) ==

== ENCOUNTER → 2019-03-10 | Outpatient (CLI) | payer OTHER ==
--- NOTE | 2019-03-15 02:40 | ECWPNPC ---
PATIENT NAME: OSMAR TILLEY : 1990 GENDER: FEMALE VISIT DATE: 03/10/2019 DISCHARGE DATE: 03/10/19 1127 VISIT LOCKED DATE TIME: PHYSICIAN: MAK VIDAL RESOURCE: MAK VIDAL REASON FOR APPOINTMENT 1. FIBROMYALGIA/ ? TPI HISTORY OF PRESENT ILLNESS PAIN SCREENIN28 Y/O YEAR FEMALE REFERRED BY RHEUMATOLOGY TO EVALUATE CHRONIC PAIN ASSOCIATED WITH FIBROMYALGIA.STATES PAIN BEGAN TO BE MORE PRONOUNCED IN 2014.DESCRIBES PAIN CONSTANT THAT GETS WORSE DAY GOES ON.LOW BACK PAIN IS WORSE AREA OF PAIN.RATING PAIN VAS 8/10.SHE REPORTS THAT SHE IS ACTIVELY TRYING TO GET . PATIENT HAS A COMPLAINT OF ACUTE OR CHRONIC PAIN :YES FALL RISK SCREENING: SCREENING :NO FALLS REPORTED IN THE LAST YEAR CURRENT MEDICATIONS TAKING POTASSIUM CITRATE ER 15 MEQ (1620 MG) TABLET EXTENDED RELEASE 1 TABLET WITH MEALS ORALLY ONCE A DAY TAKING MAY HAVE - - PLEASE DISPENSE AWAIS WRIST BRACES WITHOUT THUMB SPICA AWAIS WRISTS WEAR NIGHTLY TAKING MULTIVITAMIN PLUS DHA 27-0.8-250 MG CAPSULE 1 CAPSULE ORALLY ONCE A DAY TAKING PROVERA 10 MG TABLET 1 TABLET WITH FOOD ORALLY ONCE A DAY, NOTES: 5 DAYS OF SCRIPT LEFT TAKING VITAMIN D3 2000 UNIT CAPSULE 1 CAPSULE ORALLY ONCE A DAY MEDICATION LIST REVIEWED AND RECONCILED WITH THE PATIENT PAST MEDICAL HISTORY HEADACHES - POSSIBLY MIGRAINES; PT UNSURE SEIZURES - NOT CURRENTLY ON MEDICATIONS ASTHMA, MILD INTERMITTENT KIDNEY STONES ANXIETY, NOT ON MEDICATIONS PTSD- HX OF PHYSICAL, EMOTION AND SEXUAL ABUSE DEPRESSION SLEEP APNEA FIBROMYALGIA MONO ALLERGIES FLU SHOT: FEVER - ALLERGY SURGICAL HISTORY TONSILLECTOMY CERVICAL CERCLAGE X 2 2014 LAPAROSCOPY FOR SBO CYSTOSCOPY WITH LASER LITHOTRIPSY COLONOSCOPY FAMILY HISTORY FATHER: ALIVE, HTN, HLD MOTHER: ALIVE, LUNG CA PATERNAL GRAND FATHER: , CKD PATERNAL GRAND MOTHER: ALIVE, WELL MATERNAL GRAND FATHER: ALIVE, HTN, HLD MATERNAL GRAND MOTHER: , OF METASTATIC LUNG CA, CVD, STROKE 3 BROTHER(S) , 3 SISTER(S) . 2 SON(S) - HEALTHY. PATIENT HAS HX OF KIDNEY STONESFATHER - SLEEP APNEA, ANXIETY, DEPRESSIONMOTHER - ANXIETY, DEPRESSION2 SIBLINGS - ANXIETY, DEPRESSION, BI-POLAR, PTSD2 SISTERS - ASTHMAYOUNGEST SON - AUTISM, SENSORY PROCESSING DISORDER. SOCIAL HISTORY GENERAL: TOBACCO USE ARE YOU A:FORMER SMOKER VAPE HOW LONG HAS IT BEEN SINCE YOU LAST SMOKED?1-5 YEARS VAPORYES HIV / HEP-C SCREENING HIV TEST OFFERED TO PATIENT:YES DATE OFFERED:03/26/2017 TEST ACCEPTED:YES OTHERS AT HOME: SPOUSE, CHILDREN. HOUSING: RENTS APARTMENT. EDUCATION LEVEL OF EDUCATION:HIGH SCHOOL DIET: REGULAR. LANGUAGE LANGUAGES SPOKEN:KHMER RECREATIONAL DRUG USE DRUG USE?NO EXERCISE: WALKS. LEARNING BARRIERS / SPECIAL NEEDS CHANGE FROM LAST VISIT?NO BARRIERS TO LEARNING?NO HEARING IMPAIRED?NO VISION IMPAIRED?YES :CORRECTIVE LENSES GLASSES COGNITIVELY IMPAIRED?NO READINESS TO LEARN?YES LEARNING PREFERENCES?YES :DEMONSTRATION/VERBAL INSTRUCTION LEARNING CAPABILITIES PRESENT?YES EMOTIONAL BARRIERS?NO SPECIAL DEVICES?NO RANCH SUPERVISOR NEEDED?NO PAIN CLINIC PFS, CLERGY, PUBLIC HEALTH REFERRALS HAS THE PATIENT BEEN EDUCATED REGARDING HIS/HER PLAN OF CARE?YES HAS THE PATIENT BEEN EDUCATED REGARDING PAIN, THE RISK FOR PAIN, THE IMPORTANCE OF EFFECTIVE PAIN MANAGEMENT, AND THE PAIN ASSESSMENT PROCESS?YES LATEX QUESTIONNAIRE LATEX ALLERGY : HAVE YOU EVER DEVELOPED ANY TYPE OF REACTION AFTER HANDLING LATEX PRODUCTS SUCH RUBBER GLOVES, CONDOMS, DIAPHRAGMS, BALLOONS, SOCKS, OR UNDERWEAR?NO LATEX ALLERGY : HAVE YOU EVER DEVELOPED ANY TYPE OF REACTION DURING OR AFTER DENTAL APPOINTMENT, VAGINAL/RECTAL EXAMINATION, SURGICAL PROCEDURE, OR ANY OTHER EXPOSURE?NO LATEX RISK : HAVE YOU EVER HAD ANY DIFFICULTY BREATHING OR HIVES AFTER EATING OR HANDLING ANY FRUITS, OR VEGETABLES; SUCH KIWI, BANANAS, STONE FRUITS, OR CHESTNUTSNO LATEX RISK : DO YOU HAVE A PREVIOUS PERSONAL HISTORY OF MORE THAN NINE SURGERIES, SPINA BIFIDA, OR REPEATED CATHERIZATIONS? YES - PLEASE INDICATE : REPEATED CATHETERIZATIONS WITH LATEX RISK : ARE YOU FREQUENTLY EXPOSED TO LATEX PRODUCTS IN YOUR OCCUPATION?NO DATE ASKED : 02/13/2019 CAFFEINE CAFFEINE USE?YES OCCASIONAL SODA AND 1-2 CUPS OF COFFEE/DAY HOW OFTEN AND HOW MUCH? COFFEE AND SODA ADVANCE DIRECTIVE ADVANCE DIRECTIVE DISCUSSED WITH PATIENT:YES PATIENT STATES NO ADVANCED DIRECTIVES AND DECLINED INFORMATION ON HCP. LATTER DAY LATTER DAY NO HINDU BELIEFS THAT WOULD IMPACT HEALTH CARE. MARITAL STATUS: . ALCOHOL SCREENING DID YOU HAVE A DRINK CONTAINING ALCOHOL IN THE PAST YEAR?NO POINTS0 INTERPRETATIONNEGATIVE OCCUPATION: STAY AT HOME MOM. SEXUAL HX HAD SEX IN THE LAST 12 MONTHS (VAGINAL, ORAL, OR ANAL)?YES WITHMEN ONLY PREVENTION STRATEGIES DISCUSSED:OTHER USE PROTECTION?YES HOW OFTEN?ALL OF THE TIME LMP:03/26/2017 HAVE YOU EVER HAD AN STD?NO REVIEWED WITH PATIENT 03/10/19 Cesra JS. HOSPITALIZATION/MAJOR DIAGNOSTIC PROCEDURE REACTION TO FLU SHOT 2006 KIDNEY STONES 01/2017 BOWEL OBSTRUCTION 02/2012 PRE-TERM LABOR 11/2014 REVIEW OF SYSTEMS REVIEWED BY: PROVIDER: MAK JAY . CONSTITUTIONAL: ANY CHANGE IN YOUR MEDICAL CONDITION? YES, FIBROMYALGIA . CHILLS NO . FEVER NO . INFECTION: DO YOU HAVE NEW INFECTIONS? NO . DO YOU HAVE HISTORY OF MRSA? NO . MUSCULOSKELETAL: ANY NEW PATTERNS OF PAIN OR NUMBNESS? YES, STATES PAIN HAS INCREASED, IN MORE PLACES, BECOMING HARDER TO DEAL WITH . SYTEMIC LUPUS YES, TESTED POSITIVE FOR LUPUS IN BLOODWORK ONCE - GONIG TO BE RE-TESTED . GASTROENTEROLOGY: ANY NEW CHANGE IN BOWEL CONTROL? YES, CONSTIPATION . BARRETTS ESOPHAGUS NO . CIRRHOSIS NO . HEPATITIS NO . LIVER FAILURE NO . ACID REFLUX NO . UNEXPLAINED WEIGHT LOSS NO . GENITOURINARY: ANY NEW CHANGE IN BLADDER CONTROL? NO . IS THERE A CHANCE YOU COULD BE ? YES, STATES SHE IS CURRENTLY TRYING . HEMATOLOGY/LYMPH: DO YOU TAKE ANY BLOOD THINNERS? (FOR EXAMPLE- COUMADIN, PLAVIX, AGGRENOX, PLATEL, PRADAXA, OR XARELTO) NO . WHEN WAS YOUR LAST DOSE? DATE: TIME: . LOW PLATELET COUNT NO . SICKLE CELL DISEASE NO . VON WILLIEBRANDS NO . FACTOR V LEIDEN NO . THALLASEMIA NO . ANEMIA NO . EASY BRUISING NO . NEUROLOGY: HAVE YOU FALLEN IN THE PAST 12 MONTHS? NO . ANY NEW EXTREMITY NUMBNESS OR WEAKNESS? NO . HEAD INJURY NO . DEMENTIA NO . CEREBRAL PALSY NO . MULTIPLE SCLEROSIS NO . DIZZINESS NO . HEADACHE ADMITS, ASSOCIATED WITH NAUSEA, ASSOCIATED WITH PHOTOPHOBIA, FREQUENT . STROKES NO . VERTIGO NO . CARDIOLOGY: DO YOU HAVE A PACEMAKER OR DEFIBRILLATOR? NO . ANGINA NO . HEART ATTACK NO . HEART SURGERY NO . CONGESTIVE HEART FAILURE/FLUID OVERLOAD NO . CHEST PAIN NO . HIGH BLOOD PRESSURE NO . IRREGULAR HEART BEAT NO . RESPIRATORY: HAVE YOU BEEN SICK IN THE PAST WEEK? NO . FEVER NO . FLU LIKE SYMPTOMS? NO . CPAP YES . BYPAP NO . ASTHMA YES . EMPHYSEMA NO . CHRONIC LUNG DISEASES NO . SHORTNESS OF BREATH ON EXERTION NO . COUGH NO . SNORING YES . INTEGUMENTARY: DO YOU HAVE ANY RASHES OR OPEN SORES? NO . ALLERGIC/IMMUNO: ARE YOU ALLERGIC TO IV DYE? NO . ANY NEW ALLERGIES? NO . PSYCHIATRIC: DO YOU HAVE THOUGHTS OF HURTING YOURSELF OR SOMEONE ELSE? NO . ARE YOU ABUSED, NEGLECTED, OR IN AN UNSAFE ENVIRONMENT? NO . ENDOCRINOLOGY: ARE YOU DIABETIC? NO . THYROID DISORDER NO . OTHER: DO YOU NEED ANY PRESCRIPTIONS? NO . IF YES, PLEASE LIST: ____ . ANY NEW PROBLEMS WITH YOUR MEDICATIONS? NO . WHEN DID YOU LAST EAT? ____ . WHEN DID YOU LAST DRINK? ____ . WHAT DID YOU LAST DRINK? ____ . NAME OF PERSON DRIVING YOU HOME? ____ . DO YOU HAVE ANY OTHER QUESTIONS OR CONCERNS NO . VITAL SIGNS WT 198.6 LBS, HT 61 IN, BMI 37.52 INDEX, BP 119/61 MM HG, HR 73 /MIN, RR 18 /MIN, TEMP 96.0 F, OXYGEN SAT % 99%, SAFE IN ENV? (Y/N) YES, NA INITIALS AW 1007, REVIEWED BY: JHONATHAN. EXAMINATION GENERAL EXAMINATION: GENERAL AWAKE,ALERT ,PLEASANT . PSYCH AFFECT NORMAL . NECK: TRACHEA MIDLINE. NO CERVICAL OR SUPRACLAVICULAR LYMPHADENOPATHY NOTED. LUNGS: LUNG STORM ARE CLEAR TO AUSCULTATION BILATERALLY. GOOD MOVEMENT OF AIR . HEART: S1, S2 IN A REGULAR RATE AND RHYTHM. NO SIGNIFICANT MURMURS, RUBS OR GALLOPS NOTED . ABDOMEN: SOFT/NONTENDER. MUSCULOSKELETAL: MUSCLE STRENGTH TESTING 5/5 BILATERAL UPPER/LOWER EXTREMITIES. LUMBAR SACRAL SPINE PALPATION: + FOR PAIN OVER L/S SPINE. + FOR PAIN OVER L/S PARASPINALS. ,TRIGGER POINTS ELICITED BILATERAL LUMBAR PARASPINALS WITH INCRESE IN PAIN OVER THESE AREAS WITH ROJM SPINE. CERVICAL+ FOR PAIN WITH PALPATION OF CERVICAL SPINE. + FOR PAIN WITH PALPATION OF CERVICAL PARASPINALS. + FOR PAIN WITH PALPATION OF TRAPEZIUS BILAT. SKIN: NO RASH OR SKIN LESIONS. NEUROLOGIC EXAM: CN'S NORMAL TESTED , DTRS 1-2+ IN ALL 4 EXTREMITIES. DIAGNOSTIC TESTS REVIEWED MRI L/S SPINE- MRI C-SPINE-. MULTIPLE AREAS OF TENDER SPOTS UPPER/LOWER TORSO INDICATIVE OF FIBROMYALGIA. ASSESSMENTS FIBROMYALGIA - M79.7 (PRIMARY) SACROILIITIS - M46.1 TREATMENT FIBROMYALGIA START MELOXICAM TABLET, 15 MG, 1 TABLET, ORALLY, ONCE A DAY, 30 DAY(S), 30, REFILLS 2 X RAY : SPINES, LUMBAR [id number],JAMIE L 03/14/2019 4:47:37 PM > DUPLICATE ORDER, REPORT RECEIVED UNDER OTHER ORDER. REPORT SCANNED INTO CHART AND GIVEN TO MAK VIDAL FOR REVIEW. THIS DI WAS REVIEWED BY NANDA GRADY ON 03/14/2019 AT 16:47 PM EST NOTES: PT 2XWK [id number] BACK PAIN/SACROILLITIS. PREVENTIVE MEDICINE PAIN CLINIC TEACHING: MEDICATIONS REVIEWED INFORMATION ON NEW MEDICATION, MELOXICAM, WITH PATIENT. PATIENT VERBALIZED AN UNDERSTANDING. NANDA GRADY 03/10/2019 11:32:46 AM > . PROCEDURE CODES FA211 ESTABILISHED PATIENT [facility] FACILITY CHARGE DISPOSITION & COMMUNICATION FOLLOW UP 2 MONTHS (REASON: PT/LOW BACK XRAY) ELECTRONICALLY SIGNED BY PIERRE FRANK ON 03/14/2019 AT 01:02 PM EST DISCLAIMER : THIS IS A VISIT SUMMARY EXTRACTED FROM THE [employer] CHART. IT IS NOT A COPY OF THE [employer] PROGRESS NOTE. SUMIT
== END ==
LOC: M PAIN 10:00
PROVIDERS: ATTEND Nurse Practitioner Family
DX: M79.7 Fibromyalgia (principal); M46.1 Sacroiliitis, not elsewhere classified; R56.9 Unspecified convulsions; J45.20 Mild intermittent asthma, uncomplicated; Z86.59 Personal history of other mental and behavioral disorders; G47.30 Sleep apnea, unspecified; F17.290 Nicotine dependence, other tobacco product, uncomplicated; Z88.7 Allergy status to serum and vaccine; Z79.899 Other long term (current) drug therapy

== ENCOUNTER → 2019-03-10 | Outpatient (CLI) | payer OTHER ==
--- NOTE | 2019-03-10 13:28 | REP ---
Five views lumbar spine: 03/10/2019. Indication: Low back pain. Comparison: 11/27/2018. Findings: There is no acute fracture, subluxation or dislocation. There is straightening of the lumbar lordosis which may be positional. Very minimal levoscoliosis of the lumbar spine is redemonstrated. Impression: No acute osseous injury of the lumbar spine. Electronically Signed by Nicola Mcneal DO 03/10/2019 01:19 P
== END ==
LOC: M RAD 12:36
PROVIDERS: ATTEND Nurse Practitioner Family
DX: M79.7 Fibromyalgia (principal)

== ENCOUNTER 2019-04-04 08:45 | Outpatient (RCR) | payer OTHER | END 2019-04-22 | LOC: M PT 08:45 | PROVIDERS: ATTEND Nurse Practitioner Family | DX: M46.1 Sacroiliitis, not elsewhere classified (principal); M79.7 Fibromyalgia ==

== ENCOUNTER → 2019-05-18 | Outpatient (REF) | payer OTHER ==
[2019-05-18 14:09] LABS: INFLUENZA A AMPLIFICATION POSITIVE (NEGATIVE); INFLUENZA B AMPLIFICATION NEGATIVE (NEGATIVE)
== END ==
LOC: M LAB REF 13:17
PROVIDERS: ATTEND Physician Assistant Medical
DX: R50.9 Fever, unspecified (principal)

== ENCOUNTER → 2019-06-03 | Outpatient (CLI) | payer OTHER ==
--- NOTE | 2019-06-04 01:24 | ECWPNPC ---
PATIENT NAME: OSMAR TILLEY : 1990 GENDER: FEMALE VISIT DATE: 06/03/2019 DISCHARGE DATE: 06/03/19 1141 VISIT LOCKED DATE TIME: PHYSICIAN: MAK VIDAL RESOURCE: MAK VIDAL REASON FOR APPOINTMENT 1. 8 WEEKS/FIBRO HISTORY OF PRESENT ILLNESS HISTORY OF PRESENT ILLNESS: HERE FOR FOLLOW-UP OF CHRONIC FIBROMYALGIA. INITIAL VISIT WAS IN FEBRUARY WHERE I HAD INFORMED HER THAT SHE SHOULD START MELOXICAM, ORDERED LUMBOSACRAL X-RAY AND ADVISED PHYSICAL THERAPY. STATES THAT SHE IS ACTIVELY TRYING TO GET AND IS GOING THROUGH FERTILITY TREATMENT. STATES THAT GEAR ROLLER DOCTOR ADVISED HER NOT TO TAKE MELOXICAM. SHE DID HAVE LUMBOSACRAL X-RAYS. SHE DID NOT ATTEND PHYSICAL THERAPY DUE TO CONSTRAINTS OF SICK FAMILY MEMBERS. RATING PAIN LEVEL VIII/X VAS. PAIN THE PATIENT DESCRIBES THE PAIN... FALL RISK SCREENING: SCREENING :NO FALLS REPORTED IN THE LAST YEAR CURRENT MEDICATIONS TAKING POTASSIUM CITRATE ER 15 MEQ (1620 MG) TABLET EXTENDED RELEASE 1 TABLET WITH MEALS ORALLY ONCE A DAY TAKING MAY HAVE - - PLEASE DISPENSE AWAIS WRIST BRACES WITHOUT THUMB SPICA AWAIS WRISTS WEAR NIGHTLY TAKING MULTIVITAMIN PLUS DHA 27-0.8-250 MG CAPSULE 1 CAPSULE ORALLY ONCE A DAY TAKING LETROZOLE 2.5 MG TABLET 1 TABLET ORALLY ONCE A DAY, NOTES: TAKE DAYS 3-7 OF MESNES NOT-TAKING PROVERA 10 MG TABLET 1 TABLET WITH FOOD ORALLY ONCE A DAY, NOTES: 5 DAYS OF SCRIPT LEFT NOT-TAKING VITAMIN D3 2000 UNIT CAPSULE 1 CAPSULE ORALLY ONCE A DAY NOT-TAKING MELOXICAM 15 MG TABLET 1 TABLET ORALLY ONCE A DAY DISCONTINUED PROVERA 10 MG TABLET 1 TABLET WITH FOOD ORALLY ONCE A DAY MEDICATION LIST REVIEWED AND RECONCILED WITH THE PATIENT PAST MEDICAL HISTORY HEADACHES - POSSIBLY MIGRAINES; PT UNSURE SEIZURES - NOT CURRENTLY ON MEDICATIONS ASTHMA, MILD INTERMITTENT KIDNEY STONES ANXIETY, NOT ON MEDICATIONS PTSD- HX OF PHYSICAL, EMOTION AND SEXUAL ABUSE DEPRESSION SLEEP APNEA FIBROMYALGIA MONO ALLERGIES FLU SHOT: FEVER - ALLERGY SURGICAL HISTORY TONSILLECTOMY CERVICAL CERCLAGE X 2 2014 LAPAROSCOPY FOR SBO CYSTOSCOPY WITH LASER LITHOTRIPSY COLONOSCOPY FAMILY HISTORY FATHER: ALIVE, HTN, HLD MOTHER: ALIVE, LUNG CA PATERNAL GRAND FATHER: , CKD PATERNAL GRAND MOTHER: ALIVE, WELL MATERNAL GRAND FATHER: ALIVE, HTN, HLD MATERNAL GRAND MOTHER: , OF METASTATIC LUNG CA, CVD, STROKE 3 BROTHER(S) , 3 SISTER(S) . 2 SON(S) - HEALTHY. PATIENT HAS HX OF KIDNEY STONESFATHER - SLEEP APNEA, ANXIETY, DEPRESSIONMOTHER - ANXIETY, DEPRESSION2 SIBLINGS - ANXIETY, DEPRESSION, BI-POLAR, PTSD2 SISTERS - ASTHMAYOUNGEST SON - AUTISM, SENSORY PROCESSING DISORDER. SOCIAL HISTORY GENERAL: TOBACCO USE ARE YOU A:FORMER SMOKER VAPE HOW LONG HAS IT BEEN SINCE YOU LAST SMOKED?1-5 YEARS VAPORYES HIV / HEP-C SCREENING HIV TEST OFFERED TO PATIENT:YES DATE OFFERED:03/26/2017 TEST ACCEPTED:YES OTHERS AT HOME: SPOUSE, CHILDREN. HOUSING: RENTS APARTMENT. EDUCATION LEVEL OF EDUCATION:HIGH SCHOOL DIET: REGULAR. LANGUAGE LANGUAGES SPOKEN:BELARUSIAN RECREATIONAL DRUG USE DRUG USE?NO EXERCISE: WALKS. LEARNING BARRIERS / SPECIAL NEEDS CHANGE FROM LAST VISIT?NO BARRIERS TO LEARNING?NO HEARING IMPAIRED?NO VISION IMPAIRED?YES COGNITIVELY IMPAIRED?NO :CORRECTIVE LENSES GLASSES READINESS TO LEARN?YES LEARNING PREFERENCES?YES :DEMONSTRATION/VERBAL INSTRUCTION LEARNING CAPABILITIES PRESENT?YES EMOTIONAL BARRIERS?NO SPECIAL DEVICES?NO SNELLER HAND NEEDED?NO PAIN CLINIC PFS, CLERGY, PUBLIC HEALTH REFERRALS HAS THE PATIENT BEEN EDUCATED REGARDING HIS/HER PLAN OF CARE?YES HAS THE PATIENT BEEN EDUCATED REGARDING PAIN, THE RISK FOR PAIN, THE IMPORTANCE OF EFFECTIVE PAIN MANAGEMENT, AND THE PAIN ASSESSMENT PROCESS?YES LATEX QUESTIONNAIRE LATEX ALLERGY : HAVE YOU EVER DEVELOPED ANY TYPE OF REACTION AFTER HANDLING LATEX PRODUCTS SUCH RUBBER GLOVES, CONDOMS, DIAPHRAGMS, BALLOONS, SOCKS, OR UNDERWEAR?NO LATEX ALLERGY : HAVE YOU EVER DEVELOPED ANY TYPE OF REACTION DURING OR AFTER DENTAL APPOINTMENT, VAGINAL/RECTAL EXAMINATION, SURGICAL PROCEDURE, OR ANY OTHER EXPOSURE?NO DATE ASKED : 02/13/2019 LATEX RISK : HAVE YOU EVER HAD ANY DIFFICULTY BREATHING OR HIVES AFTER EATING OR HANDLING ANY FRUITS, OR VEGETABLES; SUCH KIWI, BANANAS, STONE FRUITS, OR CHESTNUTSNO LATEX RISK : DO YOU HAVE A PREVIOUS PERSONAL HISTORY OF MORE THAN NINE SURGERIES, SPINA BIFIDA, OR REPEATED CATHERIZATIONS? YES - PLEASE INDICATE : REPEATED CATHETERIZATIONS WITH LATEX RISK : ARE YOU FREQUENTLY EXPOSED TO LATEX PRODUCTS IN YOUR OCCUPATION?NO CAFFEINE CAFFEINE USE?YES OCCASIONAL SODA AND 1-2 CUPS OF COFFEE/DAY HOW OFTEN AND HOW MUCH? COFFEE AND SODA ADVANCE DIRECTIVE ADVANCE DIRECTIVE DISCUSSED WITH PATIENT:YES PATIENT STATES NO ADVANCED DIRECTIVES AND DECLINED INFORMATION ON HCP. GNOSTICISM GNOSTICISM NO TAOIST BELIEFS THAT WOULD IMPACT HEALTH CARE. MARITAL STATUS: . ALCOHOL SCREENING DID YOU HAVE A DRINK CONTAINING ALCOHOL IN THE PAST YEAR?NO POINTS0 INTERPRETATIONNEGATIVE OCCUPATION: STAY AT HOME MOM. SEXUAL HX HAD SEX IN THE LAST 12 MONTHS (VAGINAL, ORAL, OR ANAL)?YES WITHMEN ONLY PREVENTION STRATEGIES DISCUSSED:OTHER USE PROTECTION?YES HOW OFTEN?ALL OF THE TIME LMP:03/26/2017 HAVE YOU EVER HAD AN STD?NO REVIEWED WITH PATIENT 03/10/19 1024 JS. HOSPITALIZATION/MAJOR DIAGNOSTIC PROCEDURE REACTION TO FLU SHOT 2006 KIDNEY STONES 01/2017 BOWEL OBSTRUCTION 02/2012 PRE-TERM LABOR 11/2014 REVIEW OF SYSTEMS REVIEWED BY: PROVIDER: MAK JAY . CONSTITUTIONAL: ANY CHANGE IN YOUR MEDICAL CONDITION? NO . CHILLS NO . FEVER NO . INFECTION: DO YOU HAVE NEW INFECTIONS? NO . DO YOU HAVE HISTORY OF MRSA? NO . MUSCULOSKELETAL: ANY NEW PATTERNS OF PAIN OR NUMBNESS? YES, GETTING WORSE . GASTROENTEROLOGY: ANY NEW CHANGE IN BOWEL CONTROL? NO . GENITOURINARY: ANY NEW CHANGE IN BLADDER CONTROL? NO . IS THERE A CHANCE YOU COULD BE ? NO . HEMATOLOGY/LYMPH: DO YOU TAKE ANY BLOOD THINNERS? (FOR EXAMPLE- COUMADIN, PLAVIX, AGGRENOX, PLATEL, PRADAXA, OR XARELTO) NO . WHEN WAS YOUR LAST DOSE? DATE: TIME: . NEUROLOGY: HAVE YOU FALLEN IN THE PAST 12 MONTHS? NO . ANY NEW EXTREMITY NUMBNESS OR WEAKNESS? NO . CARDIOLOGY: DO YOU HAVE A PACEMAKER OR DEFIBRILLATOR? NO . RESPIRATORY: HAVE YOU BEEN SICK IN THE PAST WEEK? YES, FLU RESOLVED . FEVER NO . FLU LIKE SYMPTOMS? NO . COUGH YES, PRODUCTIVE CLEAR MUCOUS . INTEGUMENTARY: DO YOU HAVE ANY RASHES OR OPEN SORES? NO . ALLERGIC/IMMUNO: ARE YOU ALLERGIC TO IV DYE? NO . ANY NEW ALLERGIES? NO . PSYCHIATRIC: DO YOU HAVE THOUGHTS OF HURTING YOURSELF OR SOMEONE ELSE? NO . ARE YOU ABUSED, NEGLECTED, OR IN AN UNSAFE ENVIRONMENT? NO . ENDOCRINOLOGY: ARE YOU DIABETIC? NO . OTHER: DO YOU NEED ANY PRESCRIPTIONS? NO . IF YES, PLEASE LIST: ____ . ANY NEW PROBLEMS WITH YOUR MEDICATIONS? YES, STOPPED MELOXICAM BECAUSE SHE IS TRYING TO GET . WHEN DID YOU LAST EAT? ____ . WHEN DID YOU LAST DRINK? ____ . WHAT DID YOU LAST DRINK? ____ . NAME OF PERSON DRIVING YOU HOME? ____ . DO YOU HAVE ANY OTHER QUESTIONS OR CONCERNS NO . VITAL SIGNS WT 193 LBS, HT 61 IN, BMI 36.46 INDEX, BP 115/74 MM HG, HR 84 /MIN, RR 16 /MIN, TEMP 97.8 F, OXYGEN SAT % 97, SAFE IN ENV? (Y/N) YES, REVIEWED BY: EM. EXAMINATION GENERAL EXAMINATION: GENERALAWAKE,ALERT ,PLEASANT . PSYCHAFFECT NORMAL . LUNGS:LUNG STORM ARE CLEAR TO AUSCULTATION BILATERALLY. GOOD MOVEMENT OF AIR . HEART:S1, S2 IN A REGULAR RATE AND RHYTHM. NO SIGNIFICANT MURMURS, RUBS OR GALLOPS NOTED . ASSESSMENTS FIBROMYALGIA - M79.7 (PRIMARY) SACROILIITIS - M46.1 TREATMENT FIBROMYALGIA NOTES: ADVISED TO WAIT ON TREATMENT FOR HER CHRONIC PAIN WITH MEDICATIONS OR INJECTIONS THAT WE MIGHT BE ABLE TO OFFER HERE UNTIL SHE HAS FINISHED HER ATTEMPT OF GETTING OR AFTER HER . SHE WILL CALL US FOR A FOLLOW-UP EXAM. PROCEDURE CODES FA211 ESTABILISHED PATIENT [facility] CHARGE DISPOSITION & COMMUNICATION FOLLOW UP PT WILL CALL IF F/U NEEDED (REASON: FIBROMYALGIA) ELECTRONICALLY SIGNED BY PIERRE FRANK ON 06/03/2019 AT 12:40 PM EST DISCLAIMER : THIS IS A VISIT SUMMARY EXTRACTED FROM THE [employer] CHART. IT IS NOT A COPY OF THE [employer] PROGRESS NOTE. SUMIT
== END ==
LOC: M PAIN 11:00
PROVIDERS: ATTEND Nurse Practitioner Family
DX: M79.7 Fibromyalgia (principal); M46.1 Sacroiliitis, not elsewhere classified; J45.20 Mild intermittent asthma, uncomplicated; Z86.59 Personal history of other mental and behavioral disorders; G47.30 Sleep apnea, unspecified; F17.290 Nicotine dependence, other tobacco product, uncomplicated; Z88.7 Allergy status to serum and vaccine; Z79.899 Other long term (current) drug therapy

== ENCOUNTER → 2019-06-17 | Outpatient (CLI) | payer OTHER | LOC: M PLALAB 08:41 | PROVIDERS: ATTEND Obstetrics & Gynecology | DX: N91.2 Amenorrhea, unspecified (principal) ==

== ENCOUNTER → 2019-06-19 | Outpatient (REF) | payer OTHER | LOC: M PLALAB 09:57 | PROVIDERS: ATTEND Obstetrics & Gynecology | DX: N91.2 Amenorrhea, unspecified (principal) ==

== ENCOUNTER → 2019-07-27 | Outpatient (CLI) | payer OTHER | LOC: M LAB 10:51 | PROVIDERS: ATTEND Obstetrics & Gynecology | DX: N91.2 Amenorrhea, unspecified (principal) ==

== ENCOUNTER → 2019-08-04 | Outpatient (REF) | payer OTHER | LOC: M PLALAB 09:21 | PROVIDERS: ATTEND Obstetrics & Gynecology | DX: N91.2 Amenorrhea, unspecified (principal) ==

== ENCOUNTER → 2019-09-07 | Outpatient (CLI) | payer OTHER | LOC: M LAB 08:53 | PROVIDERS: ATTEND Obstetrics & Gynecology | DX: N91.2 Amenorrhea, unspecified (principal) ==

== ENCOUNTER → 2019-09-17 | Outpatient (REF) | payer OTHER | LOC: M PLALAB 09:38 | PROVIDERS: ATTEND Obstetrics & Gynecology | DX: N91.2 Amenorrhea, unspecified (principal) ==

== ENCOUNTER → 2020-02-02 | Outpatient (REF) | payer OTHER ==
[2020-02-02 15:37] LABS: HEMATOCRIT 40.4 % (36.0-47.0); MEAN CORPUSCULAR HEMOGLOBIN 28.5 pg (27.0-33.0); MEAN CORPUSCULAR HGB CONC 32.2 g/dl (32.0-36.5); MEAN CORPUSCULAR VOLUME 88.6 fl (80.0-96.0); PLATELET COUNT, AUTOMATED 306 10^3/uL (150-450); RED BLOOD COUNT 4.56 10^6/uL (4.00-5.40); WHITE BLOOD COUNT 8.3 10^3/uL (4.0-10.0)
[2020-02-02 15:59] LABS: HEMOGLOBIN A1c 5.1 %
[2020-02-02 16:09] LABS: ALBUMIN 3.5 GM/DL (3.2-5.2); ALT/SGPT 21 U/L (12-78); BILIRUBIN,TOTAL 0.3 MG/DL (0.2-1.0); BLOOD UREA NITROGEN 8 MG/DL (7-18); CALCIUM LEVEL 8.8 MG/DL (8.5-10.1); CARBON DIOXIDE LEVEL 28 MEQ/L (21-32); CHLORIDE LEVEL 110 MEQ/L (98-107); CHOLESTEROL LEVEL 118 MG/DL (<200); CHOLESTEROL RISK RATIO 2.185 (<5); CREATININE FOR GFR 0.56 MG/DL (0.55-1.30); GLOMERULAR FILTRATION RATE > 60.0 (>60); GLUCOSE, FASTING 89 MG/DL (70-100); HDL CHOLESTEROL 54 MG/DL (>40); LDL CHOLESTEROL 49 MG/DL (<100); NON-HDL-C 64 MG/DL; POTASSIUM SERUM 4.7 MEQ/L (3.5-5.1); SODIUM LEVEL 141 MEQ/L (136-145); TOTAL PROTEIN 6.5 GM/DL (6.4-8.2); TRIGLYCERIDES LEVEL 73 MG/DL (<150)
[2020-02-02 16:13] LABS: TOTAL 25(OH) VITAMIN D 22.6 NG/ML (30.0-100.0)
[2020-02-04 16:08] LABS: ANTINUCLEAR ANTIBODIES DIRECT Negative (Negative); Lyme Disease IgG/IgM Antibodie <0.91 ISR (0.00-0.90); Lyme Disease IgM Ab Quantitati <0.80 index (0.00-0.79)
== END ==
LOC: M SFHCPLAZ 12:08
PROVIDERS: ATTEND Physician Assistant
DX: R53.83 Other fatigue (principal); R19.7 Diarrhea, unspecified; Z13.220 Encounter for screening for lipoid disorders

== ENCOUNTER → 2020-03-03 | Outpatient (CLI) | payer OTHER ==
[2020-03-03 08:24] LABS: HEMATOCRIT 41.5 % (36.0-47.0); HEMOGLOBIN 13.3 g/dl (12.0-15.5); MEAN CORPUSCULAR HEMOGLOBIN 27.9 pg (27.0-33.0); MEAN CORPUSCULAR VOLUME 87.2 fl (80.0-96.0); PLATELET COUNT, AUTOMATED 307 10^3/uL (150-450); RED BLOOD COUNT 4.76 10^6/uL (4.00-5.40); WHITE BLOOD COUNT 8.7 10^3/uL (4.0-10.0)
[2020-03-03 09:41] LABS: ALBUMIN 3.5 GM/DL (3.2-5.2); ALT/SGPT 24 U/L (12-78); BILIRUBIN,TOTAL 0.3 MG/DL (0.2-1.0); BLOOD UREA NITROGEN 11 MG/DL (7-18); CALCIUM LEVEL 8.9 MG/DL (8.5-10.1); CARBON DIOXIDE LEVEL 26 MEQ/L (21-32); CHLORIDE LEVEL 108 MEQ/L (98-107); CREATININE FOR GFR 0.64 MG/DL (0.55-1.30); ESTRADIOL 28.4 PG/ML; FOLLICLE STIMULATING HORMONE 5.1 mIU/mL; GLOMERULAR FILTRATION RATE > 60.0 (>60); GLUCOSE, FASTING 94 MG/DL (70-100); HCG, SERUM QUANTITATIVE < 1.0 MIU/ML; POTASSIUM SERUM 4.6 MEQ/L (3.5-5.1); PROLACTIN 18.2 NG/ML; SODIUM LEVEL 140 MEQ/L (136-145); TOTAL PROTEIN 6.4 GM/DL (6.4-8.2)
--- NOTE | 2020-03-03 09:44 | REP ---
INDICATION: ENCOUNTER FOR FERTILITY TESTING. COMPARISON: Pelvic ultrasound 07/13/2014 TECHNIQUE: Endovaginal probe ultrasound for fertility evaluation. FINDINGS: Uterus: It measures 6.6 x 3.2 x 5 cm. It is homogeneous in echotexture and smoothly marginated. There is a central endometrial echogenic stripe homogeneous appearance and thickness of 3.6 mm. No fluid in the endometrial cavity or intra cervical canal. There is a trace amount of free fluid in the cul-de-sac. The transverse images raises question of mild sub septate uterus, appearance similar to the 2015 exam. Right ovary: It is 3.4 x 2.8 x 2.7 cm. There are no follicles over a cm. There are 52 follicles in the 1-8 mm range. Left ovary: It is 3.6 x 2.1 x 3 cm. There are no follicles over a cm. There 46 follicles in the 2-8 mm range. There is no free fluid adjacent to either ovary. IMPRESSION: 1. Anteverted uterus the with the homogeneous normal myometrial echotexture and endometrial stripe 63.6 mm. It may be minimally sub septated based on axial images. Trace free fluid in the cul-de-sac. 2. Neither ovary has a follicle over a cm. There are 52 follicles in the right ovary in the range of 1-8 mm and 46 in the left ovary in the range of 2-8 mm. No free fluid adjacent to either ovary. <Electronically signed by Marcos Marroquin > 03/03/20 0901
[2020-03-03 10:33] LABS: HEMOGLOBIN A1c 4.9 %
== END ==
LOC: M RAD 07:19
PROVIDERS: ATTEND Obstetrics & Gynecology Reproductive Endocrinology
DX: Z31.41 Encounter for fertility testing (principal); N85.4 Malposition of uterus

== ENCOUNTER → 2020-03-10 | Outpatient (CLI) | payer OTHER ==
[~2020-03-10] MED LIST changes: +ISOVUE-370 76% 100ML VIAL As Ordered ONE
--- NOTE | 2020-03-10 17:52 | REP ---
INDICATION: INFERTILITY MANAGEMENT. COMPARISON: None. TECHNIQUE: The endometrium was cannulated and contrast was injected by the attending strike out machine operator Dr. Montano. Fluoroscopic spot films were acquired by GUILHERME White, under the personal supervision of Dr. Shah. Images reviewed prior with Dr. Shah to dictation. FINDINGS: Fluoroscopy spot radiographs document filling of a normal endometrial cavity. There is normal isthmic and ampullary fallopian tube opacification, and bilateral tubal patency was documented. IMPRESSION: Normal hysterosalpingogram with bilateral tubal patency documented. 0.4 minutes of fluoroscopy time was utilized for this procedure. Some fluoroscopic images are performed with last image hold technology. These images require no additional radiation. <Electronically signed by Colette Newby > 03/10/20 [id number] <Electronically signed by Chris Shah > 03/10/20 [id number]
== END ==
LOC: M RADPRO 12:13
PROVIDERS: ATTEND Obstetrics & Gynecology
DX: N97.9 Female infertility, unspecified (principal)
CPT/HCPCS: 58340; 74740; Q9967

== ENCOUNTER → 2020-03-12 | Outpatient (CLI) | payer OTHER ==
[~2020-03-12] MED LIST changes: -ISOVUE-370 76% 100ML VIAL As Ordered ONE
[2020-03-12 09:28] LABS: ESTRADIOL 47.5 PG/ML; LUTEINIZING HORMONE 14.5 mIU/mL; PROGESTERONE 0.45 NG/ML
--- NOTE | 2020-03-12 09:52 | REP ---
INDICATION: FOLLICLE STUDY HAVING LABS FIRS. COMPARISON: 03/03/2020. TECHNIQUE: Transvaginal scanning performed. FINDINGS: Uterine dimensions are 7.5 x 3.2 x 4.1 cm. Endometrial echo is 4 mm in AP dimension and centrally placed. Nabothian cyst is seen in the region of the cervix. The right ovary has dimensions of 4.3 x 2.9 x 3.4 cm. Five dominant follicles are equal to or greater than 10 mm in diameter, the largest measures 17 x 12 mm.. Multiple other subcentimeter follicles are seen throughout the right ovary. The left ovary dimensions are 3.1 x 2.8 x 2.7 cm. Two dominant follicles are visualized measuring 11 x 3 in 10 x 9 mm. Multiple other subcentimeter follicles are seen. There is no adnexal mass identified. No free fluid is seen in the cul-de-sac. IMPRESSION: Ovarian follicles as above. <Electronically signed by Chris Shah > 03/12/20 0948
== END ==
LOC: M RAD 07:40
PROVIDERS: ATTEND Obstetrics & Gynecology Reproductive Endocrinology
DX: N97.9 Female infertility, unspecified (principal); N88.8 Other specified noninflammatory disorders of cervix uteri

== ENCOUNTER → 2020-03-15 | Outpatient (CLI) | payer OTHER ==
[2020-03-15 11:24] LABS: ESTRADIOL 131.3 PG/ML; LUTEINIZING HORMONE 8.7 mIU/mL; PROGESTERONE 0.57 NG/ML
== END ==
LOC: M PLALAB 08:12
DX: Z31.41 Encounter for fertility testing (principal)

== ENCOUNTER → 2020-03-15 | Outpatient (CLI) | payer OTHER ==
--- NOTE | 2020-03-15 08:13 | REP ---
INDICATION: Z31.41 FERTILITY TREATMENTS COMPARISON: 03/12/2020 TECHNIQUE: Transvaginal pelvic ultrasound with color Doppler evaluation. FINDINGS: Normal anteverted uterus measures 7.5 x 3.9 x 3.4 cm. The endometrial complex measures 6 mm thickness. No discrete uterine or endometrial abnormalities are appreciated. Bilateral ovaries are normal in appearance and vascularity without evidence for torsion. Right ovary measures 3.9 x 3.0 x 2.6 cm and includes single 20 mm follicle and multiple sub cm follicles; R I = 0.42. Left ovary measures 3.2 x 2.2 x 2.4 cm and includes single 10 mm follicle and multiple sub cm follicles; R I = 0.39. No pelvic free fluid. IMPRESSION: Follicular study as noted above primarily demonstrating multiple bilateral subcentimeter follicles. <Electronically signed by Josh Rae > 03/15/20 0844
== END ==
LOC: M WHC 06:15
PROVIDERS: ATTEND Obstetrics & Gynecology Reproductive Endocrinology
DX: Z31.41 Encounter for fertility testing (principal)

== ENCOUNTER 2020-03-24 21:45 | Emergency (ER) | payer OTHER ==
[~2020-03-24] VITALS: Ht 154.9 cm; Wt 94.5 kg
[2020-03-24] MEDS ORDERED: GNP28TAB2 PO (21:51)
[2020-03-25] MEDS ORDERED: ACETAMINOPHEN 325 MG TAB PO ONE
[2020-03-25 00:11] LABS: BASO % 0.4 % (0.0-1.0); EOS # 0.2 10^3/uL (0.0-0.5); EOS % 1.4 % (0.0-3.0); HEMATOCRIT 42.2 % (36.0-47.0); HEMOGLOBIN 13.5 g/dl (12.0-15.5); LYMPH # 2.6 10^3/uL (1.5-5.0); MEAN CORPUSCULAR HEMOGLOBIN 28.2 pg (27.0-33.0); MEAN CORPUSCULAR VOLUME 88.1 fl (80.0-96.0); MONO # 0.8 10^3/uL (0.0-0.8); MONO % 7.4 % (0.0-5.0); NEUTROPHILS # 7.6 10^3/uL (1.5-8.5); NEUTROPHILS % 67.3 % (36.0-66.0); PLATELET COUNT, AUTOMATED 296 10^3/uL (150-450); RED BLOOD COUNT 4.79 10^6/uL (4.00-5.40); WHITE BLOOD COUNT 11.4 10^3/uL (4.0-10.0)
[2020-03-25 00:35] LABS: HCG, SERUM QUALITATIVE NEGATIVE (NEGATIVE)
[2020-03-25 00:39] LABS: NT-PRO BNP 19 PG/ML (<125)
[2020-03-25 01:06] LABS: BLOOD UREA NITROGEN 12 MG/DL (7-18); CARBON DIOXIDE LEVEL 25 MEQ/L (21-32); CHLORIDE LEVEL 109 MEQ/L (98-107); CREATININE FOR GFR 0.67 MG/DL (0.55-1.30); GLOMERULAR FILTRATION RATE > 60.0 (>60); GLUCOSE, FASTING 92 MG/DL (70-100); POTASSIUM SERUM 4.5 MEQ/L (3.5-5.1); SODIUM LEVEL 139 MEQ/L (136-145)
[2020-03-25] MEDS ORDERED: GABAPENTIN 300 MG CAP PO ONE (01:30)
[2020-03-25] MEDS ORDERED: CYCLOBENZAPRINE 10MG TABLET PO ONE (01:30)
[2020-03-25] MEDS ORDERED: KETOROLAC 60MG 2ML VIAL IM ONE (02:00)
[2020-03-25 02:10] VITALS: BP 119/78
[2020-03-25] MEDS ORDERED: CYCL5TAB PO (02:31)
[2020-03-25] MEDS ORDERED: GABA-843 PO (02:31)
[2020-03-25] MEDS ORDERED: IBUP80TA PO (02:31)
== END 2020-03-25 02:39 | disposition home or self-care (01) ==
LOC: M ED 21:45
DX: M54.31 Sciatica, right side (principal); M54.10 Radiculopathy, site unspecified; J45.909 Unspecified asthma, uncomplicated; R51.9 Headache, unspecified; K59.00 Constipation, unspecified; F41.9 Anxiety disorder, unspecified; F32.9 Major depressive disorder, single episode, unspecified; E28.2 Polycystic ovarian syndrome; Z87.442 Personal history of urinary calculi; Z88.7 Allergy status to serum and vaccine; F17.290 Nicotine dependence, other tobacco product, uncomplicated; Z79.899 Other long term (current) drug therapy
CPT/HCPCS: 36415; 80048; 81001; 83880; 84703; 85025; 87086; 96372; 99283; J1885

== ENCOUNTER → 2020-04-05 | Outpatient (CLI) | payer OTHER ==
[~2020-04-05] MED LIST changes: +CYCL5TAB PO; +GNP28TAB2 PO
[2020-04-05 12:25] LABS: HCG, SERUM QUANTITATIVE < 1.0 MIU/ML
[2020-04-05 12:29] LABS: ESTRADIOL 28.3 PG/ML
--- NOTE | 2020-04-05 12:32 | REP ---
INDICATION: FEMALE INFERTILITY, UNSPECIFIED/LABS 1ST. COMPARISON: Eleven 07/11/2019. TECHNIQUE: Endovaginal imaging for ovarian follicle analysis. FINDINGS: Right ovary: The right ovary measures 4.4 x 2.4 x 2.9 cm and is normal size. There are 3 right ovarian follicles measuring 10 x 6 mm, 11 x 5 mm and 10 x 7 mm. Additionally there proximally 57 follicles measuring 2-8 mm. Left ovary: The left ovary measures 3.6 x 2.3 x 2.6 cm and is normal size. There is a single follicle measuring 13 x 7 mm. Additionally there 48 follicles measuring 2-9 mm. Uterus: The uterus is retroverted and measures 7.2 x 4.3 x 3.5 cm. The endometrial stripe is not thickened measuring 4.7 mm with a homogeneous echotexture. IMPRESSION: Ovarian follicles as described. <Electronically signed by Chris Mukherjee > 04/05/20 [id number]
== END ==
LOC: M LAB 11:17
PROVIDERS: ATTEND Obstetrics & Gynecology Reproductive Endocrinology
DX: N97.9 Female infertility, unspecified (principal)

== ENCOUNTER → 2020-04-13 | Outpatient (CLI) | payer OTHER ==
--- NOTE | 2020-04-13 10:10 | REP ---
INDICATION: FEMALE INFERTILITY, UNSPECIFIED/ LABS 1ST COMPARISON: 04/05/2020 TECHNIQUE: Transvaginal examination for detailed evaluation of the endometrium and adnexa. FINDINGS: Normal uterus measures 7.0 x 2.8 x 4.1 cm. The endometrial complex measures 3.3 mm thickness. No discrete uterine or endometrial abnormalities are appreciated. Bilateral ovaries are normal in appearance. Right ovary measures 3.1 x 2.5 x 3.0 cm and includes approximately 30+ follicles ranging in size from 1 mm to 8 mm diameter. Left ovary measures 3.3 x 2.5 x 3.6 cm and includes approximately 30+ follicles ranging in size from 2.3 mm to 9.3 mm diameter. IMPRESSION: Multiple bilateral subcentimeter follicles. <Electronically signed by Josh Rae > 04/13/20 1007
[2020-04-13 10:32] LABS: ESTRADIOL 32.2 PG/ML; HCG, SERUM QUANTITATIVE < 1.0 MIU/ML
== END ==
LOC: M RAD 09:00
PROVIDERS: ATTEND Obstetrics & Gynecology Reproductive Endocrinology
DX: N97.9 Female infertility, unspecified (principal)

== ENCOUNTER → 2020-04-19 | Outpatient (CLI) | payer OTHER ==
--- NOTE | 2020-04-19 08:14 | REP ---
INDICATION: FEMALE INFERTILITY, UNSPECIFIED COMPARISON: None. TECHNIQUE: Transvaginal ultrasound examination. FINDINGS: Normal anteverted uterus measures 8.5 x 3.5 x 4.2 cm. The endometrial complex measures 6.3 mm thickness. Incidental subcentimeter nabothian cyst in the lower uterine segment/cervical region. Right ovary measures 3.2 x 2.2 x 2.8 cm and includes 7.2 x 12.3 mm follicle and roughly 25-30 subcentimeter follicles measuring between 2.1 mm and 8.3 mm diameter. Left ovary measures 4.1 x 2.8 x 3.4 cm and includes 21 x 22 mm, 10 x 5 mm, 18 x 11 mm, 12 x 5 mm, 11 x 5 mm, and 12 x 11 mm follicles along with roughly 25-30 subcentimeter follicles measuring between 1.8 mm and 7.4 mm. IMPRESSION: Multiple bilateral follicles as described above <Electronically signed by Josh Rae > 04/19/20 [id number]
[2020-04-19 09:57] LABS: LUTEINIZING HORMONE 9.6 mIU/mL; PROGESTERONE 0.38 NG/ML
== END ==
LOC: M RAD 06:48
PROVIDERS: ATTEND Obstetrics & Gynecology Reproductive Endocrinology
DX: Z31.41 Encounter for fertility testing (principal)

== ENCOUNTER → 2020-05-05 | Outpatient (CLI) | payer OTHER ==
[~2020-05-05] MED LIST changes: +GABA-282 PO; -GABA-843 PO
== END ==
LOC: M LAB 08:04
PROVIDERS: ATTEND Obstetrics & Gynecology
DX: Z32.00 Encounter for pregnancy test, result unknown (principal)

== ENCOUNTER → 2020-05-28 | Outpatient (CLI) | payer OTHER ==
--- NOTE | 2020-05-29 02:27 | REP ---
INDICATION: DDD CERVICAL, RIGHT SIDED SCIATICA. COMPARISON: None. TECHNIQUE: AP, lateral, flexion/extension, open mouth views of the cervical spine. FINDINGS: Alignment and lordosis maintained. No acute fracture/compression injury or subluxation. No spondylolisthesis. Early spurring at C5-6 suggests very mild degenerative change. IMPRESSION: Very mild focal degenerative spondylosis at C5-6 suggested. <Electronically signed by Josh Rae > 05/29/20 [id number]
--- NOTE | 2020-05-29 02:41 | REP ---
INDICATION: DDD CERVICAL, RIGHT SIDED SCIATICA COMPARISON: None. TECHNIQUE: AP, lateral, flexion/extension, bilateral oblique, and coned-down views. FINDINGS: Alignment and lordosis is maintained. The vertebral bodies including transverse process and spinous processes are intact and normal. There is no evidence for acute fracture / compression injury or subluxation. No evidence for spondylolysis or spondylolisthesis. No significant degenerative change is noted. IMPRESSION: Normal lumbosacral spine radiograph series. <Electronically signed by Josh Rae > 05/29/20 [id number]
== END ==
LOC: M RAD 13:18
PROVIDERS: ATTEND Physician Assistant
DX: M54.31 Sciatica, right side (principal)

== ENCOUNTER → 2020-06-18 | Outpatient (CLI) | payer OTHER | LOC: M LAB 16:01 | PROVIDERS: ATTEND Obstetrics & Gynecology | DX: N91.2 Amenorrhea, unspecified (principal) ==

== ENCOUNTER → 2020-06-22 | Outpatient (CLI) | payer OTHER ==
--- NOTE | 2020-06-22 07:25 | REPVR ---
PROCEDURE INFORMATION: Exam: US Pelvis, Transvaginal Exam date and time: 06/22/2020 6:45 AM Age: 30 years old Clinical indication: Screening exam; Follicle study; Additional info: Infertility TECHNIQUE: Imaging protocol: Real-time transvaginal pelvic ultrasound with image documentation. Transvaginal imaging was used for better evaluation of the endometrium, adnexa, and/or cervix. COMPARISON: Transvaginal NON- US 04/19/2020 8:33 AM FINDINGS: Uterus/cervix: Uterus measures 7.6 x 3.3 x 4.3 cm. Nabothian cyst. Trace fluid along the endometrial canal. Endometrial stripe measures 4 mm. Right adnexa: Right ovary measures 4.3 x 3.3 x 3 cm. Eight subcentimeter right ovarian follicles ranging in size from 3-9 mm. Left adnexa: Left ovary measures 3.3 x 3.8 x 3 cm. Ten subcentimeter left ovarian follicles ranging in size from 3-8 mm. Intraperitoneal space: No free fluid. IMPRESSION: Eight subcentimeter right ovarian follicles ranging in size from 3-9 mm. Ten subcentimeter left ovarian follicles ranging in size from 3-8 mm. Trace fluid along the endometrial canal. Electronically signed by: Yoel Palomares On 06/22/2020 07:25:51 AM
== END ==
LOC: M RAD 06:07
PROVIDERS: ATTEND Obstetrics & Gynecology Reproductive Endocrinology
DX: N97.9 Female infertility, unspecified (principal)

== ENCOUNTER → 2020-07-01 | Outpatient (CLI) | payer OTHER ==
--- NOTE | 2020-07-01 08:51 | REP ---
INDICATION: INFERTILITY COMPARISON: 06/22/2020 TECHNIQUE: Transvaginal B-mode ultrasound examination for better evaluation of the endometrium and adnexa. FINDINGS: Normal retroverted uterus measures 7.1 x 3.1 x 4.3 cm. The endometrial complex measures 3.8 mm thickness. No discrete uterine or endometrial abnormalities are appreciated. Right ovary measures 3.4 x 2.9 x 2.8 cm and includes 45 subcentimeter follicles measuring between 0.3 and 8.8 Mm. Left ovary measures 3.2 x 2.8 x 2.9 cm and includes 56 subcentimeter follicles measuring between 1.3 and 9.6 mm. IMPRESSION: Innumerable subcentimeter follicles. <Electronically signed by Josh Rae > 07/01/20 [id number]
[2020-07-01 12:25] LABS: ESTRADIOL < 19.0 PG/ML; LUTEINIZING HORMONE 21.3 mIU/mL
== END ==
LOC: M LAB 07:40
PROVIDERS: ATTEND Obstetrics & Gynecology
DX: N97.9 Female infertility, unspecified (principal)

== ENCOUNTER → 2020-07-07 | Outpatient (CLI) | payer OTHER ==
--- NOTE | 2020-07-07 09:01 | REP ---
INDICATION: INFERTILITY- LAB FIRST COMPARISON: None. TECHNIQUE: Transvaginal examination with color Doppler evaluation of the ovaries. FINDINGS: Normal anteverted uterus measures 6.9 x 3.1 x 4.3 cm. The endometrial complex measures 5.6 mm thickness. No discrete uterine or endometrial abnormalities are appreciated. Right ovary measures 3.3 x 2.8 x 2.8 cm (RI 0.60) and includes multiple follicles between 2 and 5 mm. Left ovary measures 3.7 x 2.4 x 3.0 cm (RI 0.60) and includes 10 x 15 mm follicle and multiple follicles between 2 and 5 mm. IMPRESSION: Normal uterus. Predominantly subcentimeter follicles measuring between 2 and 5 mm bilaterally. Single left ovarian follicle measuring 10 x 15 mm <Electronically signed by Josh Rae > 07/07/20 [id number]
[2020-07-07 11:02] LABS: ESTRADIOL 61.7 PG/ML; LUTEINIZING HORMONE 14.2 mIU/mL
== END ==
LOC: M RAD 07:39
PROVIDERS: ATTEND Obstetrics & Gynecology Reproductive Endocrinology
DX: Z31.41 Encounter for fertility testing (principal)

== ENCOUNTER → 2020-07-12 | Outpatient (CLI) | payer OTHER ==
--- NOTE | 2020-07-12 07:13 | REPVR ---
PROCEDURE INFORMATION: Exam: US Pelvis, Transvaginal Exam date and time: 07/12/2020 6:58 AM Age: 30 years old Clinical indication: Screening exam; Follicle study; Additional info: Infertility- labs first TECHNIQUE: Imaging protocol: Real-time transvaginal pelvic ultrasound with image documentation. Transvaginal imaging was used for better evaluation of the endometrium, adnexa, and/or cervix. COMPARISON: Transvaginal NON- US 07/07/2020 8:03 AM FINDINGS: Uterus/cervix: The uterus measures 8.2 x 3.2 x 4.1 cm. The endometrial stripe measures 9 mm in thickness. A nabothian cyst is noted at the cervix. Right adnexa: The right ovary measures 3.9 x 3.0 x 3.5 cm and contains multiple small follicles, numbering approximately 22 and ranging from 4.1 mm to 7.5 mm. Left adnexa: The left ovary measures 3.6 x 4.3 x 3.1 cm. There is a dominant follicle measuring 2.1 x 1.9 cm. There are approximately 18 additional follicles ranging in size from 2.3-7.0 mm. Intraperitoneal space: No significant fluid is seen in the cul-de-sac. IMPRESSION: Dominant follicle in the left ovary measuring 2.1 x 1.9 cm with multiple additional small follicles in both ovaries. Electronically signed by: Karen Hendrickson On 07/12/2020 07:13:54 AM
[2020-07-12 09:41] LABS: ESTRADIOL 178.1 PG/ML; LUTEINIZING HORMONE 41.8 mIU/mL; PROGESTERONE 0.68 NG/ML
== END ==
LOC: M RAD 06:23
PROVIDERS: ATTEND Obstetrics & Gynecology Reproductive Endocrinology
DX: Z31.41 Encounter for fertility testing (principal)

== ENCOUNTER → 2020-08-02 | Outpatient (CLI) | payer OTHER ==
[2020-08-02 08:44] LABS: HCG, SERUM QUANTITATIVE < 1.0 MIU/ML
--- NOTE | 2020-08-02 08:49 | REP ---
INDICATION: INFERTILITY COMPARISON: 07/12/2020 TECHNIQUE: Transvaginal pelvic ultrasound.. FINDINGS: Normal anteverted uterus measures 7.5 x 3.6 x 3.8 cm. The endometrial complex measures 3.0 mm thickness. No discrete uterine or endometrial abnormalities are appreciated. Right ovary measures 3.6 x 2.6 x 3.2 cm and includes greater than 20 follicles ranging between 3 and 9 mm. Left ovary measures 3.2 x 2.8 x 3.2 cm and includes greater than 20 follicles ranging between 2 and 8 mm. IMPRESSION: Innumerable bilateral subcentimeter follicles. <Electronically signed by Josh Rae > 08/02/20 [id number]
[2020-08-02 10:33] LABS: ESTRADIOL 33.3 PG/ML
== END ==
LOC: M RAD 07:35
PROVIDERS: ATTEND Obstetrics & Gynecology Reproductive Endocrinology
DX: Z32.00 Encounter for pregnancy test, result unknown (principal); Z31.41 Encounter for fertility testing

== ENCOUNTER → 2020-08-10 | Outpatient (CLI) | payer OTHER ==
--- NOTE | 2020-08-10 08:22 | REP ---
INDICATION: INFERTILITY- STAT LABS FIRST COMPARISON: 08/03/2019 TECHNIQUE: Transvaginal pelvic ultrasound with color Doppler evaluation of the ovaries. FINDINGS: Normal anteverted uterus measures 7.1 x 3.3 x 3.9 cm. The endometrial complex measures 2.7 mm thickness. No discrete uterine or endometrial abnormalities are appreciated. No pelvic free fluid. Right ovary measures 3.4 x 3.2 x 3.0 cm and includes 13 x 14 mm follicle and innumerable subcentimeter follicles measuring between 2 and 9 mm. Left ovary measures 3.3 x 2.6 x 2.6 cm and includes innumerable subcentimeter follicles measuring between 2 and 9 mm. IMPRESSION: Innumerable bilateral subcentimeter follicles. <Electronically signed by Josh Rae > 08/10/20 [id number]
[2020-08-10 10:47] LABS: ESTRADIOL 37.3 PG/ML; LUTEINIZING HORMONE 13.2 mIU/mL
== END ==
LOC: M RAD 07:10
PROVIDERS: ATTEND Obstetrics & Gynecology Reproductive Endocrinology
DX: Z31.41 Encounter for fertility testing (principal)

== ENCOUNTER → 2020-08-16 | Outpatient (CLI) | payer OTHER ==
--- NOTE | 2020-08-16 09:14 | REP ---
INDICATION: INFERTILITY. COMPARISON: 08/10/2020. TECHNIQUE: Real-time sonographic evaluation of pelvis performed utilizing transvaginal technique. FINDINGS: The uterus measures 7.9 x 3.3 x 4.3 cm. The endometrial echo complex measures 7 mm. No free fluid is seen. Right ovary measures 3.8 x 2.8 x 3.6 cm. A follicle measures 10 x 10 mm. There are multiple other follicles less than 10 mm in maximum diameter. A complex cystic structure measures 22 x 11 mm. Left ovary measures 3.8 x 2.4 x 3.0 cm. There is a dominant follicle 11 x 6 mm. There are multiple other follicles less than 10 mm in maximum diameter. Blood flow is seen in each ovary with duplex Doppler evaluation. IMPRESSION: Bilateral ovarian follicles as discussed above. <Electronically signed by Chris Shah > 08/16/20 [id number]
[2020-08-16 10:00] LABS: LUTEINIZING HORMONE 11.2 mIU/mL
[2020-08-16 13:57] LABS: PROGESTERONE 0.41 NG/ML
== END ==
LOC: M RAD 08:21
PROVIDERS: ATTEND Obstetrics & Gynecology Reproductive Endocrinology
DX: N97.9 Female infertility, unspecified (principal)

== ENCOUNTER → 2020-09-08 | Outpatient (CLI) | payer OTHER ==
--- NOTE | 2020-09-08 11:44 | REP ---
INDICATION: INFERTILITY. COMPARISON: 08/19/2020. TECHNIQUE: Transvaginal pelvic ultrasound performed. FINDINGS: Uterus measures 7.7 x 3.6 x 4.7 cm. A tiny amount of endometrial fluid is present. The endometrial echo complex has a thickness of 3 mm. Right ovary measures 3.7 x 3.0 x 2.5 cm. Multiple subcentimeter follicles range in diameter 3-6 mm. The left ovary measures 3.3 x 2.3 x 2.7 cm. Multiple subcentimeter follicles range in diameter 2-9 mm. IMPRESSION: Multiple subcentimeter follicles seen in each ovary. <Electronically signed by Chris Shah > 09/08/20 [id number]
[2020-09-08 12:30] LABS: HCG, SERUM QUANTITATIVE < 1.0 MIU/ML
[2020-09-08 12:35] LABS: ESTRADIOL 34.5 PG/ML
== END ==
LOC: M RAD 10:53
PROVIDERS: ATTEND Obstetrics & Gynecology Reproductive Endocrinology
DX: Z32.00 Encounter for pregnancy test, result unknown (principal); Z31.41 Encounter for fertility testing

== ENCOUNTER → 2020-09-16 | Outpatient (CLI) | payer OTHER ==
--- NOTE | 2020-09-16 08:44 | REP ---
INDICATION: INFERTILITY COMPARISON: 09/08/2020 TECHNIQUE: Transvaginal examination for better evaluation of the endometrium and adnexa. FINDINGS: Anteverted uterus measures 7.2 x 3.1 x 4.1 cm. The endometrial complex measures 3.3 mm thickness. Small nabothian cysts at the cervix noted. No pelvic free fluid. Right ovary measures 3.2 x 2.7 x 2.5 cm and includes greater than 50 subcentimeter follicles up to 7 mm. Left ovary measures 2.8 x 2.6 x 2.5 cm with a 11 mm follicle and roughly 50 subcentimeter follicles up to 8 mm. IMPRESSION: Essentially innumerable subcentimeter bilateral follicles. <Electronically signed by Josh Rae > 09/16/20 [id number]
[2020-09-16 11:42] LABS: ESTRADIOL < 19.0 PG/ML; LUTEINIZING HORMONE 15.3 mIU/mL; PROGESTERONE 0.62 NG/ML
== END ==
LOC: M LAB 07:39
PROVIDERS: ATTEND Obstetrics & Gynecology Reproductive Endocrinology
DX: Z31.41 Encounter for fertility testing (principal)

== ENCOUNTER → 2020-09-16 | Outpatient (REF) | payer OTHER ==
[2020-09-16 18:05] LABS: HEPATITIS B SURFACE ANTIGEN NEGATIVE (NEGATIVE); HIV 1&2 SCREEN CENTAUR NEGATIVE (NEGATIVE)
== END ==
LOC: M PLALAB 14:34
PROVIDERS: ATTEND Obstetrics & Gynecology
DX: Z11.3 Encounter for screening for infections with a predominantly sexual mode of transmission (principal)

== ENCOUNTER 2020-09-17 09:45 | Outpatient (RCR) | payer OTHER | END 2020-09-20 | LOC: M PT 09:45 | PROVIDERS: ATTEND Physician Assistant | DX: M54.2 Cervicalgia (principal); M50.30 Other cervical disc degeneration, unspecified cervical region; M54.5 Low back pain; M54.31 Sciatica, right side ==

== ENCOUNTER → 2020-09-21 | Outpatient (CLI) | payer OTHER ==
--- NOTE | 2020-09-21 09:24 | REP ---
INDICATION: INFERTILITY US 1ST LABS 2ND COMPARISON: 09/16/2020 TECHNIQUE: Transvaginal pelvic ultrasound. FINDINGS: Bladder is unremarkable and measures . Anteverted uterus measures 8.1 x 3.4 x 4.4 cm. Endometrial complex measures 6 mm thickness. Small amount of fluid in the endocervical canal noted. No uterine or endometrial abnormality identified. Right ovary measures 3.8 x 2.8 x 2.9 cm with 8 x 6 mm, 6 x 6 mm, 9 x 8 mm, 8 x 6 mm, 6 x 4 mm, 6 x 5 mm, 7 x 5 mm, 7 x 4 mm, 9 x 7 mm, 8 x 6 mm, 5 x 3 mm, and 10 x 7 mm follicles. Left ovary measures 3.6 x 2.7 x 3.0 cm and includes 9 x 7 mm, 8 x 6 mm, 6 x 5 mm, 6 x 7 mm, 9 x 6 mm, 5 x 4 mm, 6 x 4 mm, 5 x 4 mm, 8 x 5 mm, 7 x 4 mm, 9 x 5 mm, and 19 x 13 mm follicles. IMPRESSION: Predominantly subcentimeter follicles as noted above. <Electronically signed by Josh Rae > 09/21/20 [id number]
[2020-09-21 10:48] LABS: ESTRADIOL 51.1 PG/ML; LUTEINIZING HORMONE 9.8 mIU/mL; PROGESTERONE 0.75 NG/ML
== END ==
LOC: M LAB 08:20
PROVIDERS: ATTEND Obstetrics & Gynecology Reproductive Endocrinology
DX: Z31.41 Encounter for fertility testing (principal)

== ENCOUNTER 2020-09-23 11:29 | Outpatient (RCR) | payer OTHER | END 2020-10-20 | LOC: M PT 11:29 | PROVIDERS: ATTEND Physician Assistant | DX: M54.5 Low back pain (principal); M54.31 Sciatica, right side ==

== ENCOUNTER → 2020-10-12 | Outpatient (CLI) | payer OTHER ==
--- NOTE | 2020-10-12 09:46 | REP ---
INDICATION: INFERTILITY. COMPARISON: Comparison study September 21, 2020.. TECHNIQUE: Transvaginal pelvic sonography. Ovarian follicle study. FINDINGS: Uterine dimensions are 8.0 x 3.9 x 4.6 cm. Endometrial echo is 0.7 cm thick and centrally placed. No free fluid is seen. No focal uterine mass is seen. The overall dimensions of the right ovary are 2.7 x 3.1 x 2.6 cm today. There are no follicles measuring greater than a cm in the right ovary but there are 18 follicles ranging in size from 0.25-0.82 cm. The left ovary is dimensions are 3.3 x 2.4 x 2.6 cm. There are no follicles measuring greater than a cm in the left ovary today however there are 17 follicles ranging in size from 0.26-0.82 cm. IMPRESSION: Ovarian follicle study as above. <Electronically signed by Bharat De La Paz > 10/12/20 [id number]
[2020-10-12 10:24] LABS: HCG, SERUM QUANTITATIVE < 1.0 MIU/ML
[2020-10-12 11:43] LABS: PROGESTERONE 0.53 NG/ML
[2020-10-12 11:44] LABS: ESTRADIOL 24.2 PG/ML
== END ==
LOC: M RAD 08:32
PROVIDERS: ATTEND Obstetrics & Gynecology Reproductive Endocrinology
DX: N97.9 Female infertility, unspecified (principal)

== ENCOUNTER → 2020-11-12 | Outpatient (CLI) | payer OTHER | LOC: M PLALAB 10:17 | PROVIDERS: ATTEND Obstetrics & Gynecology Reproductive Endocrinology | DX: Z32.00 Encounter for pregnancy test, result unknown (principal) ==

== ENCOUNTER → 2020-11-23 | Outpatient (CLI) | payer OTHER ==
[~2020-11-23] MED LIST changes: +IBUP-1022 PO; +METF-838 PO; +NAPR-885 PO; +OXYC1TAB23 PO; +PREG75CA2 PO
== END ==
LOC: M PLAIMG 10:23
PROVIDERS: ATTEND Nurse Practitioner Family
DX: M54.17 Radiculopathy, lumbosacral region (principal)

== ENCOUNTER → 2021-01-14 | Outpatient (CLI) | payer OTHER ==
[~2021-01-14] MED LIST changes: -IBUP-1022 PO; -METF-838 PO; -NAPR-885 PO; -OXYC1TAB23 PO; -PREG75CA2 PO
--- NOTE | 2021-01-17 16:30 | SLEEPCENT ---
DATE: 01/14/2021 ORDERED BY: PIERRE Juares Nocturnal polysomnography was performed for the titration of pressure therapy in this patient with a clinical history of obstructive sleep apnea syndrome confirmed by home testing revealing a respiratory event index of 5.1. For testing the patient was fit with a [employer]Med AirFit F20 full face mask of small size, 4 cm of water pressure were applied to the circuit, and the lights were extinguished. Eight hours and 11 minutes of data were reviewed. There were 438 minutes of sleep identified. Sleep latency was mildly prolonged at 25 minutes. REM latency was mildly prolonged at 115.5 minutes. Sleep architecture improved with optimal pressure therapy and there were three REM cycles noted. Overall sleep efficiency was 90.3%. The electrocardiogram showed a sinus rhythm with an average heart rate of 80 beats per minute. Rate ranged 60-100. EEG showed normal waveforms for wake and sleep. Respiratory events were fully palliated with CPAP at a pressure of 6 and remaining measures of sleep physiology were reasonably normal. IMPRESSION: Obstructive sleep apnea syndrome (G47.33). RECOMMENDATION: Nightly use of pressure therapy 6 cm of water. cc: RAFAELA HUTCHINS MD
== END ==
LOC: M SLEEP 20:00
PROVIDERS: ATTEND Nurse Practitioner Family
DX: G47.33 Obstructive sleep apnea (adult) (pediatric) (principal)

== ENCOUNTER → 2021-02-15 | Outpatient (CLI) | payer OTHER ==
[2021-02-15 15:11] LABS: FREE T4 0.95 NG/DL (0.76-1.46); THYROID STIMULATING HORMONE 1.82 uIU/ML (0.358-3.740)
[2021-02-15 15:14] LABS: PROGESTERONE 0.39 NG/ML; PROLACTIN 8.4 NG/ML
[2021-02-15 15:15] LABS: FOLLICLE STIMULATING HORMONE 5.3 mIU/mL
== END ==
LOC: M PLALAB 09:54
PROVIDERS: ATTEND Specialist
DX: N92.6 Irregular menstruation, unspecified (principal)

== ENCOUNTER → 2021-04-13 | Outpatient (CLI) | payer OTHER ==
[~2021-04-13] MED LIST changes: +IBUP-1022 PO; +METF-838 PO; +NAPR-885 PO; +OXYC1TAB23 PO; +PREG75CA2 PO
[2021-04-13 14:15] LABS: BASO % 0.4 % (0.0-1.0); EOS # 0.2 10^3/uL (0.0-0.5); EOS % 2.4 % (0.0-3.0); HEMATOCRIT 40.7 % (36.0-47.0); HEMOGLOBIN 13.4 g/dl (12.0-15.5); LYMPH % 28.4 % (24.0-44.0); MEAN CORPUSCULAR HEMOGLOBIN 28.6 pg (27.0-33.0); MEAN CORPUSCULAR HGB CONC 32.9 g/dl (32.0-36.5); MONO # 0.6 10^3/uL (0.0-0.8); NEUTROPHILS # 4.2 10^3/uL (1.5-8.5); NEUTROPHILS % 59.4 % (36.0-66.0); PLATELET COUNT, AUTOMATED 313 10^3/uL (150-450); RED BLOOD COUNT 4.68 10^6/uL (4.00-5.40); WHITE BLOOD COUNT 7.1 10^3/uL (4.0-10.0)
[2021-04-13 14:16] LABS: ALBUMIN 3.5 GM/DL (3.2-5.2); ALT/SGPT 42 U/L (12-78); BILIRUBIN,TOTAL 0.3 MG/DL (0.2-1.0); BLOOD UREA NITROGEN 9 MG/DL (7-18); CALCIUM LEVEL 8.9 MG/DL (8.5-10.1); CARBON DIOXIDE LEVEL 25 MEQ/L (21-32); CHLORIDE LEVEL 110 MEQ/L (98-107); CREATININE FOR GFR 0.61 MG/DL (0.55-1.30); GLOMERULAR FILTRATION RATE > 60.0 (>60); GLUCOSE, FASTING 99 MG/DL (70-100); POTASSIUM SERUM 4.4 MEQ/L (3.5-5.1); RHEUMATOID FACTOR QUANT < 10.0 IU/ML (<15.0); SODIUM LEVEL 141 MEQ/L (136-145); TOTAL PROTEIN 6.5 GM/DL (6.4-8.2)
[2021-04-13 14:24] LABS: TOTAL 25(OH) VITAMIN D 31.7 NG/ML (30.0-100.0)
[2021-04-13 14:46] LABS: HEMOGLOBIN A1c 5.1 %
[2021-04-13 15:17] LABS: ERYTHROCYTE SEDIMENTATION RATE 13 mm/hr (0-20)
[2021-04-14 23:08] LABS: ANA (HEP2) Negative (.); CYCLIC CITRULLINATED PEPTIDE 4 units (0-19)
== END ==
LOC: M PLALAB 09:29
PROVIDERS: ATTEND Physician Assistant Medical
DX: Z13.1 Encounter for screening for diabetes mellitus (principal); M13.0 Polyarthritis, unspecified; E55.9 Vitamin D deficiency, unspecified

== ENCOUNTER → 2021-05-04 | Outpatient (CLI) | payer OTHER ==
[~2021-05-04] MED LIST changes: -IBUP-1022 PO; -OXYC1TAB23 PO
== END ==
LOC: M LABSMTC 10:28
PROVIDERS: ATTEND Anesthesiology
DX: Z01.818 Encounter for other preprocedural examination (principal); Z11.52 Encounter for screening for COVID-19

== ENCOUNTER 2021-05-09 08:08 | Day surgery (SDC) | payer OTHER ==
[~2021-05-09] VITALS: Ht 154.9 cm; Wt 100.2 kg
[~2021-05-09 08:08] MED LIST changes: +LR 1,000 ML IV ONE
[2021-05-09 08:37] LABS: HEMATOCRIT 42.8 % (36.0-47.0); HEMOGLOBIN 14.3 g/dl (12.0-15.5); MEAN CORPUSCULAR HEMOGLOBIN 28.6 pg (27.0-33.0); MEAN CORPUSCULAR HGB CONC 33.4 g/dl (32.0-36.5); MEAN CORPUSCULAR VOLUME 85.6 fl (80.0-96.0); PLATELET COUNT, AUTOMATED 301 10^3/uL (150-450); WHITE BLOOD COUNT 9.3 10^3/uL (4.0-10.0)
[2021-05-09] MEDS ORDERED: BUPIVACAINE HCL 0.25% 10ML VIAL As Ordered ONE (09:32)
[2021-05-09 09:53] LABS: HCG, SERUM QUALITATIVE NEGATIVE (NEGATIVE)
[2021-05-09] MEDS ORDERED: dexameTHASONE 4 MG/ML 1ML VIAL (J1100 PER 1MG) As Ordered ONE (10:03)
[2021-05-09] MEDS ORDERED: ROCURONIUM BROMIDE 50 MG/5 ML VIAL As Ordered ONE (10:03)
[2021-05-09] MEDS ORDERED: fentaNYL 100 MCG/2 ML INJECTION As Ordered ONE (10:03)
[2021-05-09] MEDS ORDERED: MIDAZOLAM INJ 2MG/2ML VIAL (J2250 PER 1MG) As Ordered ONE (10:03)
[2021-05-09] MEDS ORDERED: propofoL 200 MG/20 ML VIAL As Ordered ONE (10:03)
[2021-05-09] MEDS ORDERED: SUGAMMADEX SODIUM 500 MG/5 ML VIAL (BRIDION) As Ordered ONE (10:03)
[2021-05-09] MEDS ORDERED: ONDANSETRON 4MG/2ML VIAL As Ordered ONE (10:03)
[2021-05-09] MEDS ORDERED: LIDOCAINE 2% 100MG/5ML SDV (FOR ANES.) As Ordered ONE (10:03)
[2021-05-09] MEDS ORDERED: ACETAMINOPHEN 1000MG 100ML IV BTL (OFIRMEV) (J0131 PER 10MG) As Ordered ONE (10:15)
[2021-05-09] MEDS ORDERED: KETOROLAC 60MG 2ML VIAL As Ordered ONE (10:34)
[2021-05-09] MEDS ORDERED: LR 1,000 ML IV SCH ×2 (11:30→12:15)
[2021-05-09] MEDS ORDERED: ONDANSETRON 4MG/2ML VIAL IV PRN (11:30)
[2021-05-09] MEDS: fentaNYL 100 MCG/2 ML INJECTION IV PRN ×4 (11:40→12:14)
[2021-05-09] MEDS ORDERED: OXYC1TAB23 PO (11:51)
[2021-05-09] MEDS ORDERED: IBUP-1022 PO (11:52)
[2021-05-09] MEDS ORDERED: PERCOCET 5MG/325MG TAB PO PRN (12:15)
[2021-05-09] MEDS: oxyCODONE 5MG TAB PO PRN ×2 (12:18→12:58)
[2021-05-09 13:45] VITALS: BP 139/70
== END 2021-05-09 14:06 | disposition home or self-care (01) ==
LOC: M SDC 08:08
PROVIDERS: ATTEND Specialist
DX: E28.2 Polycystic ovarian syndrome (principal); R56.9 Unspecified convulsions; F43.10 Post-traumatic stress disorder, unspecified; J45.909 Unspecified asthma, uncomplicated; M79.7 Fibromyalgia; F32.A Depression, unspecified; F41.9 Anxiety disorder, unspecified; R51.9 Headache, unspecified; Z79.899 Other long term (current) drug therapy; Z88.7 Allergy status to serum and vaccine
CPT/HCPCS: 36415; 58558; 58970; 84703; 85027; 88305; J0131; J1100; J1885; J2250; J2405; J3010

== ENCOUNTER → 2021-05-31 | Outpatient (REF) | payer OTHER ==
[~2021-05-31] MED LIST changes: +IBUP-1022 PO; -LR 1,000 ML IV ONE; +OXYC1TAB23 PO
[2021-05-31 17:25] LABS: APPEARANCE, URINE CLEAR (CLEAR); BACTERIA, URINE AUTO NEGATIVE (NEGATIVE); BILIRUBIN, URINE AUTO NEGATIVE (NEGATIVE); BLOOD, URINE BLOOD NEGATIVE (NEGATIVE); COLOR, URINE YELLOW (YELLOW); GLUCOSE, URINE (UA) AUTO NEGATIVE (NEGATIVE); KETONE, URINE AUTO NEGATIVE (NEGATIVE); LEUKOCYTE ESTERASE, URINE AUTO NEGATIVE (NEGATIVE); MUCUS, URINE SMALL (NEGATIVE); NITRITE, URINE AUTO NEGATIVE (NEGATIVE); PROTEIN, URINE AUTO NEGATIVE (NEGATIVE); RBC, URINE AUTO 0 /HPF (0-3); SQUAMOUS EPITHELIAL CELL UR AU 1 /HPF (0-6); UROBILINOGEN, URINE AUTO 0.2 mg/dL (0.0-2.0); WBC, URINE AUTO 0 /HPF (0-3)
== END ==
LOC: M SFHCPLAZ 16:57
PROVIDERS: ATTEND Physician Assistant Medical
DX: F41.8 Other specified anxiety disorders (principal)

== ENCOUNTER → 2021-06-02 | Outpatient (CLI) | payer OTHER ==
[2021-06-02 18:40] LABS: ALBUMIN 3.5 GM/DL (3.2-5.2); ALT/SGPT 33 U/L (12-78); BILIRUBIN,TOTAL 0.2 MG/DL (0.2-1.0); BLOOD UREA NITROGEN 10 MG/DL (7-18); CALCIUM LEVEL 8.7 MG/DL (8.5-10.1); CARBON DIOXIDE LEVEL 28 MEQ/L (21-32); CHLORIDE LEVEL 109 MEQ/L (98-107); CREATININE FOR GFR 0.63 MG/DL (0.55-1.30); GLOMERULAR FILTRATION RATE > 60.0 (>60); GLUCOSE, FASTING 97 MG/DL (70-100); SODIUM LEVEL 142 MEQ/L (136-145)
== END ==
LOC: M RAD 16:59
PROVIDERS: ATTEND Physician Assistant Medical
DX: N13.2 Hydronephrosis with renal and ureteral calculous obstruction (principal)

== ENCOUNTER → 2021-06-22 | Outpatient (CLI) | payer OTHER ==
[2021-06-22 13:44] LABS: INR 0.93; PROTHROMBIN TIME 12.9 SECONDS (12.7-14.5)
[2021-06-22 13:45] LABS: PARTIAL THROMBOPLASTIN TIME 29.5 SECONDS (25.9-37.0)
[2021-06-22 14:45] LABS: HEPATITIS B SURFACE ANTIBODY POSITIVE (POSITIVE); HEPATITIS B SURFACE ANTIGEN NEGATIVE (NEGATIVE)
== END ==
LOC: M PLALAB 10:31
PROVIDERS: ATTEND Physician Assistant Medical
DX: K76.0 Fatty (change of) liver, not elsewhere classified (principal)

== ENCOUNTER → 2021-06-22 | Outpatient (CLI) | payer OTHER | LOC: M PLALAB 10:34 | PROVIDERS: ATTEND Specialist | DX: N92.6 Irregular menstruation, unspecified (principal) ==

== ENCOUNTER → 2021-07-25 | Outpatient (CLI) | payer OTHER | LOC: M PLALAB 13:23 | PROVIDERS: ATTEND Specialist | DX: N92.6 Irregular menstruation, unspecified (principal) ==

== ENCOUNTER → 2021-09-20 | Outpatient (CLI) | payer OTHER | LOC: M PLALAB 10:28 | PROVIDERS: ATTEND Obstetrics & Gynecology | DX: N97.0 Female infertility associated with anovulation (principal) ==

== ENCOUNTER → 2021-09-20 | Outpatient (CLI) | payer OTHER ==
[2021-09-20 15:51] LABS: HEMATOCRIT 38.4 % (36.0-47.0); HEMOGLOBIN 12.8 g/dl (12.0-15.5); MEAN CORPUSCULAR HEMOGLOBIN 28.4 pg (27.0-33.0); MEAN CORPUSCULAR HGB CONC 33.3 g/dl (32.0-36.5); MEAN CORPUSCULAR VOLUME 85.1 fl (80.0-96.0); PLATELET COUNT, AUTOMATED 253 10^3/uL (150-450); RED BLOOD COUNT 4.51 10^6/uL (4.00-5.40); WHITE BLOOD COUNT 8.7 10^3/uL (4.0-10.0)
[2021-09-20 17:18] LABS: HEPATITIS C VIRUS ABY INDEX 0.1 INDEX (<0.8); HIV 1&2 SCREEN CENTAUR NEGATIVE (NEGATIVE)
[2021-09-20 17:28] LABS: GC DNA AMPLIFICATION NEGATIVE (NEGATIVE)
== END ==
LOC: M PLALAB 14:02
PROVIDERS: ATTEND Obstetrics & Gynecology
DX: I10 Essential (primary) hypertension (principal)

== ENCOUNTER 2021-10-05 07:19 | Day surgery (SDC) | payer OTHER ==
[~2021-10-05] VITALS: Ht 154.9 cm; Wt 95.3 kg
[~2021-10-05 07:19] MED LIST changes: +D3400CHW PO; +LIDOCAINE 2% 100MG/5ML SDV (FOR ANES.) As Ordered ONE; +MIDAZOLAM INJ 2MG/2ML VIAL (J2250 PER 1MG) As Ordered ONE; +ONDANSETRON 4MG/2ML VIAL As Ordered ONE; +[UNRECOGNIZED DRUG - CODE] PO; +dexameTHASONE 4 MG/ML 1ML VIAL (J1100 PER 1MG) As Ordered ONE; +fentaNYL 100 MCG/2 ML INJECTION As Ordered ONE; +propofoL 200 MG/20 ML VIAL As Ordered ONE
[2021-10-05] MEDS ORDERED: COLA100C5 PO (07:46)
[2021-10-05 07:56] LABS: HEMATOCRIT 37.3 % (36.0-47.0); HEMOGLOBIN 12.3 g/dl (12.0-15.5); MEAN CORPUSCULAR HEMOGLOBIN 28.1 pg (27.0-33.0); MEAN CORPUSCULAR VOLUME 85.4 fl (80.0-96.0); PLATELET COUNT, AUTOMATED 251 10^3/uL (150-450); RED BLOOD COUNT 4.37 10^6/uL (4.00-5.40); WHITE BLOOD COUNT 10.5 10^3/uL (4.0-10.0)
[2021-10-05] MEDS ORDERED: CHLOROPROCAINE PRES. FREE 3% 20ML VIAL As Ordered ONE (08:25)
[2021-10-05] MEDS ORDERED: LR 1,000 ML IV SCH ×2 (08:45→09:20)
[2021-10-05] MEDS ORDERED: PHENYLephrine 500MCG 5ML (100MCG/ML) SYRINGE As Ordered ONE (09:00)
[2021-10-05] MEDS ORDERED: NORCO, ANEXSIA 5/325MG TABLET (HYDROcodone/ACETAMINOPHEN) PO PRN (09:20)
[2021-10-05] MEDS ORDERED: ONDANSETRON 4MG/2ML VIAL IV PRN (09:20)
[2021-10-05] MEDS ORDERED: SUGAMMADEX SODIUM 500 MG/5 ML VIAL (BRIDION) As Ordered ONE (10:31)
[2021-10-05 11:00] VITALS: BP 115/69
== END 2021-10-05 11:09 | disposition home or self-care (01) ==
LOC: M SDC 07:19
PROVIDERS: ATTEND Obstetrics & Gynecology
DX: O34.31 Maternal care for cervical incompetence, first trimester (principal); Z3A.13 13 weeks gestation of pregnancy
CPT/HCPCS: 36415; 59320; 85027; 86850; 86900; 86901; 87426; J2370; J2400; J2405; J3010

== ENCOUNTER → 2021-11-15 | Outpatient (CLI) | payer OTHER ==
[~2021-11-15] MED LIST changes: +COLA100C5 PO; +ETON68IM SC; -LIDOCAINE 2% 100MG/5ML SDV (FOR ANES.) As Ordered ONE; -MIDAZOLAM INJ 2MG/2ML VIAL (J2250 PER 1MG) As Ordered ONE; -NEXP1IMP SC; -ONDANSETRON 4MG/2ML VIAL As Ordered ONE; -dexameTHASONE 4 MG/ML 1ML VIAL (J1100 PER 1MG) As Ordered ONE; -fentaNYL 100 MCG/2 ML INJECTION As Ordered ONE; -propofoL 200 MG/20 ML VIAL As Ordered ONE
== END ==
LOC: M WHC 09:38
PROVIDERS: ATTEND Obstetrics & Gynecology
DX: O09.291 Supervision of pregnancy with other poor reproductive or obstetric history, first trimester (principal)

== ENCOUNTER → 2021-12-15 | Outpatient (CLI) | payer OTHER | LOC: M WHC 10:34 | PROVIDERS: ATTEND Obstetrics & Gynecology | DX: Z36.2 Encounter for other antenatal screening follow-up (principal); Z3A.23 23 weeks gestation of pregnancy ==

== ENCOUNTER → 2021-12-22 | Outpatient (CLI) | payer OTHER ==
[2021-12-22 13:16] LABS: HEMATOCRIT 36.1 % (36.0-47.0); HEMOGLOBIN 11.7 g/dl (12.0-15.5); MEAN CORPUSCULAR HEMOGLOBIN 28.5 pg (27.0-33.0); MEAN CORPUSCULAR HGB CONC 32.4 g/dl (32.0-36.5); MEAN CORPUSCULAR VOLUME 87.8 fl (80.0-96.0); PLATELET COUNT, AUTOMATED 246 10^3/uL (150-450); RED BLOOD COUNT 4.11 10^6/uL (4.00-5.40); WHITE BLOOD COUNT 9.7 10^3/uL (4.0-10.0)
[2021-12-22 15:44] LABS: GC DNA AMPLIFICATION NEGATIVE (NEGATIVE)
== END ==
LOC: M PLALAB 10:22
PROVIDERS: ATTEND Physician Assistant Medical
DX: O09.292 Supervision of pregnancy with other poor reproductive or obstetric history, second trimester (principal); Z3A.00 Weeks of gestation of pregnancy not specified

== ENCOUNTER → 2022-01-12 | Outpatient (CLI) | payer OTHER | LOC: M LAB 11:16 | PROVIDERS: ATTEND Specialist | DX: Z34.83 Encounter for supervision of other normal pregnancy, third trimester (principal) ==

== ENCOUNTER → 2022-01-25 | Outpatient (CLI) | payer OTHER | LOC: M WHC 08:58 | PROVIDERS: ATTEND Specialist | DX: Z34.83 Encounter for supervision of other normal pregnancy, third trimester (principal) ==

== ENCOUNTER 2022-03-06 08:43 | Outpatient (CLI) | payer OTHER ==
[~2022-03-06] VITALS: Ht 154.9 cm; Wt 103.4 kg
[2022-03-06 09:13] VITALS: BP 126/83
[2022-03-06] MEDS ORDERED: HOME MED LIST COMPLETE! XX SCH (09:35)
[2022-03-06 10:25] LABS: APPEARANCE, URINE MANUAL CLEAR (CLEAR); BILIRUBIN, URINE MANUAL NEGATIVE (NEGATIVE); BLOOD URINE MANUAL TRACE (NEGATIVE); COLOR, URINE MANUAL YELLOW (YELLOW); GLUCOSE, URINE (UA) MANUAL NEGATIVE (NEGATIVE); KETONE, URINE MANUAL NEGATIVE (NEGATIVE); LEUKOCYTE ESTERASE, URINE MAN TRACE (NEGATIVE); NITRITE, URINE MANUAL NEGATIVE (NEGATIVE); PH,URINE MAN 6.5 UNITS (5.0 - 7.0); PROTEIN, URINE MANUAL 1+ mg/dL (NEGATIVE); SPECIFIC GRAVITY,URINE MANUAL 1.015 (1.002-1.035); UROBILINOGEN, URINE MANUAL NORMAL (NORMAL)
[2022-03-06 10:41] VITALS: BP 132/66
[2022-03-06 11:00] LABS: BACTERIA, URINE MOD AMOUNT; HYALINE CAST, URINE NONE SEEN /lpf (0-1); SQUAMOUS EPITHELIAL CELL URINE SMALL AMOUNT /hpf (SMALL AMT)
[2022-03-06] MEDS ORDERED: BETAMETHASONE SOLUSPAN 6MG/ML 5ML VIAL (J0702 PER 3MG) IM SCH (14:00)
[2022-03-06 14:03] VITALS: BP 142/91
[2022-03-06 14:13] VITALS: BP 147/88
[2022-03-06 16:24] LABS: CREATININE,RANDOM URINE 67.3 MG/DL; TOTAL PROTEIN,RANDOM URINE 45.7 MG/DL (0.0-12.0)
[2022-03-07] MEDS ORDERED: ACET-897 PO (13:53)
== END 2022-03-06 14:25 | disposition home or self-care (01) ==
LOC: M LDO 08:43
PROVIDERS: ATTEND Advanced Practice Midwife
DX: O60.03 Preterm labor without delivery, third trimester (principal); O26.893 Other specified pregnancy related conditions, third trimester; R10.30 Lower abdominal pain, unspecified; O34.32 Maternal care for cervical incompetence, second trimester; Z3A.34 34 weeks gestation of pregnancy; Z87.891 Personal history of nicotine dependence
CPT/HCPCS: 59025; 76817; 81000; 82570; 84156; 87070; 87077; 87081; 87086; 96372; J0702

== ENCOUNTER 2022-03-07 13:05 | Outpatient (CLI) | payer OTHER ==
[~2022-03-07] VITALS: Ht 154.9 cm; Wt 102.7 kg
[2022-03-07] MEDS ORDERED: BETAMETHASONE SOLUSPAN 6MG/ML 5ML VIAL (J0702 PER 3MG) IM ONE (13:20)
[2022-03-07] MEDS ORDERED: ACET-897 PO (13:53)
[2022-03-07] MEDS ORDERED: HOME MED LIST COMPLETE! XX SCH (13:55)
[2022-03-07 14:19] VITALS: BP 117/66
== END 2022-03-07 14:33 | disposition home or self-care (01) ==
LOC: M LDO 13:05
PROVIDERS: ATTEND Specialist
DX: O60.03 Preterm labor without delivery, third trimester (principal); Z3A.35 35 weeks gestation of pregnancy
CPT/HCPCS: 59025; 96372; J0702

== ENCOUNTER 2022-03-08 14:22 | Outpatient (CLI) | payer OTHER ==
[~2022-03-08] VITALS: Ht 154.9 cm; Wt 101.9 kg
[~2022-03-08 14:22] MED LIST changes: +ACET-897 PO
[2022-03-08 14:50] VITALS: BP 133/83
[2022-03-08] MEDS ORDERED: HOME MED LIST COMPLETE! XX SCH (14:50)
[2022-03-08] MEDS ORDERED: FLUCONAZOLE 50MG TABLET PO ONE (15:00)
== END 2022-03-08 16:20 | disposition home or self-care (01) ==
LOC: M LDO 14:22
PROVIDERS: ATTEND Advanced Practice Midwife
DX: O36.8130 Decreased fetal movements, third trimester, not applicable or unspecified (principal); O26.873 Cervical shortening, third trimester; O60.03 Preterm labor without delivery, third trimester; O23.593 Infection of other part of genital tract in pregnancy, third trimester; B37.9 Candidiasis, unspecified; Z3A.35 35 weeks gestation of pregnancy

== ENCOUNTER 2022-03-13 22:13 | Outpatient (CLI) | payer OTHER ==
[~2022-03-13] VITALS: Ht 154.9 cm; Wt 103.9 kg
[2022-03-13 22:29] VITALS: BP 133/74
[2022-03-14] MEDS ORDERED: FLUCONAZOLE 50MG TABLET PO ONE (01:30)
== END 2022-03-14 04:50 | disposition home or self-care (01) ==
LOC: M LDO 22:13
PROVIDERS: ATTEND Advanced Practice Midwife
DX: O60.03 Preterm labor without delivery, third trimester (principal); O26.893 Other specified pregnancy related conditions, third trimester; R10.30 Lower abdominal pain, unspecified; Z87.51 Personal history of pre-term labor; O26.873 Cervical shortening, third trimester; O34.33 Maternal care for cervical incompetence, third trimester; Z3A.33 33 weeks gestation of pregnancy

== ENCOUNTER 2022-03-17 22:47 | Outpatient (CLI) | payer OTHER ==
[~2022-03-17] VITALS: Ht 154.9 cm; Wt 105.9 kg
[2022-03-17 23:03] VITALS: BP 140/94
== END 2022-03-18 00:23 | disposition home or self-care (01) ==
LOC: M LDO 22:47
PROVIDERS: ATTEND Obstetrics & Gynecology
DX: O60.03 Preterm labor without delivery, third trimester (principal); O26.893 Other specified pregnancy related conditions, third trimester; N89.8 Other specified noninflammatory disorders of vagina; Z3A.36 36 weeks gestation of pregnancy

== ENCOUNTER 2022-03-22 10:51 | Inpatient (IN) | payer OTHER ==
[~2022-03-22] VITALS: Ht 154.9 cm; Wt 106.9 kg
[2022-03-22] VITALS (18 sets, daily range): BP systolic 109–179; BP diastolic 65–98
[2022-03-22] MEDS ORDERED: HOME MED LIST COMPLETE! XX SCH (11:15)
[2022-03-22] MEDS ORDERED: TRANEXAMIC ACID INJection 1,000 MG in NS 100 ML IV PRN (13:10)
[2022-03-22] MEDS ORDERED: LACTATED RINGER'S 1000 ML IV STA (13:10)
[2022-03-22] MEDS ORDERED: CARBOPROST TROMETHAMINE 250 MCG/ML AMP IM PRN (13:10)
[2022-03-22 13:58] LABS: HEMATOCRIT 37.5 % (36.0-47.0); HEMOGLOBIN 12.3 g/dl (12.0-15.5); MEAN CORPUSCULAR HEMOGLOBIN 28.5 pg (27.0-33.0); MEAN CORPUSCULAR HGB CONC 32.8 g/dl (32.0-36.5); MEAN CORPUSCULAR VOLUME 86.8 fl (80.0-96.0); PLATELET COUNT, AUTOMATED 262 10^3/uL (150-450); RED BLOOD COUNT 4.32 10^6/uL (4.00-5.40); WHITE BLOOD COUNT 10.1 10^3/uL (4.0-10.0)
[2022-03-22 14:29] LABS: URIC ACID 5.2 MG/DL (3.1-7.8)
[2022-03-22 14:31] LABS: CREATININE,RANDOM URINE 101.5 MG/DL; LDH LACTATE DEHYDROGENASE 145 U/L (120-246)
[2022-03-22 14:33] LABS: ALT/SGPT 11 U/L (7.0-40); AST/SGOT 13 U/L (<34); BILIRUBIN,TOTAL < 0.2 MG/DL (0.3-1.2); CREATININE FOR GFR 0.36 MG/DL (0.55-1.30); GLOMERULAR FILTRATION RATE > 60.0 (>60)
[2022-03-22] MEDS: LR 1,000 ML IV SCH ×2 (16:12→18:24)
[2022-03-22] MEDS ORDERED: FENTANYL 2MCG/ML ROPIVACAINE 0.2% IN 0.9% NACL 100ML IVBAG As Ordered ONE (18:35)
[2022-03-22] MEDS ORDERED: FENTANYL/ROPIVACAINE/NACL BAG 100 ML EPIDURAL SCH (18:40)
[2022-03-22] MEDS ORDERED: ePHEDrine SULFATE 25 MG/5 ML(5MG/ML) SYRINGE IVP PRN (18:40)
[2022-03-22] MEDS ORDERED: EPIDURAL/PCA KEYS XX PRN (18:40)
[2022-03-22] MEDS ORDERED: LR 500 ML IV PRN (18:40)
[2022-03-22] MEDS ORDERED: ONDANSETRON 4MG 2ML VIAL IV PRN ×2 (18:40→19:35)
[2022-03-22] MEDS ORDERED: NALOXONE INJ 0.4MG/1ML VIAL IV PRN (18:40)
[2022-03-22] MEDS ORDERED: diphenhydrAMINE 50MG/ML VIAL IV PRN (18:40)
[2022-03-22] MEDS ORDERED: OXYTOCIN 30 UNITS IN 0.9% NaCl 500ML IV BAG (J2590) As Ordered ONE (19:10)
[2022-03-22] MEDS ORDERED: LIDOCAINE 1% MDV 50ML VIAL As Ordered ONE (19:22)
[2022-03-22] MEDS ORDERED: LIDOCAINE 1% MDV 20ML VIAL IM ONE (19:25)
[2022-03-22] MEDS ORDERED: LIDOCAINE 1% MDV 50ML VIAL SC ONE (19:25)
[2022-03-22] MEDS ORDERED: OXYTOCIN DRIP 30 UNITS in IV 1 EA IV STA (19:26)
[2022-03-22] MEDS ORDERED: RHOGAM 300 MCG (1500 IU) INJ (J2790) IM SCH (19:35)
[2022-03-22] MEDS ORDERED: OXYTOCIN DRIP 30 UNITS in IV 1 EA IV SCH (19:35)
[2022-03-22] MEDS ORDERED: DIBUCAINE 1% OINTMENT 30GM TOP PRN (19:35)
[2022-03-22] MEDS ORDERED: IBUPROFEN 600MG TAB PO PRN (19:35)
[2022-03-22] MEDS ORDERED: LR 1,000 ML IV SCH (19:35)
[2022-03-22] MEDS ORDERED: ACETAMINOPHEN TAB 650MG DOSE (2X325MG) PO PRN (19:35)
[2022-03-22] MEDS ORDERED: DOCUSATE SODIUM 100MG CAPSULE PO PRN (19:35)
[2022-03-23 05:37] VITALS: BP 130/73
[2022-03-23] MEDS: IBUPROFEN 800 MG TAB PO PRN ×2 (06:26→19:39)
[2022-03-23] MEDS: PRENATAL VITAMINS CHEWABLE TABLET PO SCH (09:00)
[2022-03-23] MEDS: ACETAMINOPHEN 500 MG TAB PO PRN (12:23)
[2022-03-23 17:42] VITALS: BP 144/84
[2022-03-24] MEDS: IBUPROFEN 800 MG TAB PO PRN (03:36)
[2022-03-24 06:00] VITALS: BP 138/80
[2022-03-24] MEDS: PRENATAL VITAMINS CHEWABLE TABLET PO SCH (07:41)
[2022-03-24] MEDS: ACETAMINOPHEN 500 MG TAB PO PRN (07:41)
[2022-03-24] MEDS ORDERED: MEASLES,MUMPS,RUBELLA VACCINE INJ (MMR-II) (90707) SC.IMMUN ONE (09:00)
== END 2022-03-24 14:56 | disposition home or self-care (01) | DRG 560 ==
LOC: M LDO 10:51 → M LDI 12:55 → M OBS 22:25
PROVIDERS: ADMIT Obstetrics & Gynecology; ATTEND Obstetrics & Gynecology
PROC: 10E0XZZ Delivery of Products of Conception, External Approach (ICD-10-PCS; principal; 2022-03-22)
PROC: 0HQ9XZZ Repair Perineum Skin, External Approach (ICD-10-PCS; 2022-03-22)
PROC: 10907ZC Drainage of Amniotic Fluid, Therapeutic from Products of Conception, Via Natural or Artificial Opening (ICD-10-PCS; 2022-03-22)
DX: O13.4 Gestational [pregnancy-induced] hypertension without significant proteinuria, complicating childbirth (principal); O34.33 Maternal care for cervical incompetence, third trimester; E66.9 Obesity, unspecified; Z3A.37 37 weeks gestation of pregnancy; O99.214 Obesity complicating childbirth; O70.0 First degree perineal laceration during delivery; Z37.0 Single live birth

== ENCOUNTER → 2022-06-26 | Outpatient (CLI) | payer OTHER ==
[2022-06-26 13:46] LABS: HEMATOCRIT 39.1 % (36.0-47.0); HEMOGLOBIN 12.5 g/dl (12.0-15.5); MEAN CORPUSCULAR HEMOGLOBIN 27.7 pg (27.0-33.0); MEAN CORPUSCULAR VOLUME 86.5 fl (80.0-96.0); PLATELET COUNT, AUTOMATED 298 10^3/uL (150-450); RED BLOOD COUNT 4.52 10^6/uL (4.00-5.40); WHITE BLOOD COUNT 9.1 10^3/uL (4.0-10.0)
== END ==
LOC: M PLALAB 12:00
PROVIDERS: ATTEND Obstetrics & Gynecology
DX: N93.9 Abnormal uterine and vaginal bleeding, unspecified (principal)

== ENCOUNTER → 2022-10-19 | Outpatient (REF) | payer OTHER | LOC: M SFHCWAGY 17:50 | PROVIDERS: ATTEND Obstetrics & Gynecology | DX: Z12.4 Encounter for screening for malignant neoplasm of cervix (principal) ==

== ENCOUNTER → 2022-11-25 | Outpatient (CLI) | payer OTHER | LOC: M LAB 10:06 | PROVIDERS: ATTEND Obstetrics & Gynecology | DX: N97.0 Female infertility associated with anovulation (principal) ==

== ENCOUNTER → 2022-12-04 | Outpatient (CLI) | payer OTHER ==
[2022-12-04 14:08] LABS: BASO # 0.1 10^3/uL (0.0-0.2); BASO % 0.5 % (0.0-1.0); EOS # 0.2 10^3/uL (0.0-0.5); EOS % 1.6 % (0.0-3.0); HEMATOCRIT 42.8 % (36.0-47.0); HEMOGLOBIN 13.9 g/dl (12.0-15.5); LYMPH # 1.5 10^3/uL (1.5-5.0); LYMPH % 15.7 % (24.0-44.0); MEAN CORPUSCULAR HEMOGLOBIN 27.4 pg (27.0-33.0); MEAN CORPUSCULAR HGB CONC 32.5 g/dl (32.0-36.5); MEAN CORPUSCULAR VOLUME 84.3 fl (80.0-96.0); MONO # 0.7 10^3/uL (0.0-0.8); MONO % 7.6 % (2.0-8.0); NEUTROPHILS # 7.2 10^3/uL (1.5-8.5); PLATELET COUNT, AUTOMATED 319 10^3/uL (150-450); RED BLOOD COUNT 5.08 10^6/uL (4.00-5.40); WHITE BLOOD COUNT 9.8 10^3/uL (4.0-10.0)
[2022-12-04 14:29] LABS: ERYTHROCYTE SEDIMENTATION RATE 20 mm/hr (0-20)
[2022-12-04 14:32] LABS: ALBUMIN 3.5 G/DL (3.2-5.2); ALKALINE PHOSPHATASE 153 U/L (46-116); ALT/SGPT 24 U/L (7.0-40); AST/SGOT 9 U/L (<34); BILIRUBIN,TOTAL 0.4 MG/DL (0.3-1.2); BLOOD UREA NITROGEN 11 MG/DL (9-23); CALCIUM LEVEL 9.3 MG/DL (8.5-10.1); CARBON DIOXIDE LEVEL 26 MMOL/L (20-31); CHLORIDE LEVEL 106 MMOL/L (98-107); CREATININE FOR GFR 0.68 MG/DL (0.55-1.30); GLOMERULAR FILTRATION RATE > 60.0 (>60); GLUCOSE, FASTING 93 MG/DL (60-100); POTASSIUM SERUM 4.7 MMOL/L (3.5-5.1); SODIUM LEVEL 139 MMOL/L (136-145); TOTAL PROTEIN 6.6 G/DL (5.7-8.2)
== END ==
LOC: M LAB 12:54
PROVIDERS: ATTEND Internal Medicine Rheumatology
DX: M35.3 Polymyalgia rheumatica (principal)

== ENCOUNTER → 2022-12-27 | Outpatient (CLI) | payer OTHER ==
[~2022-12-27] MED LIST changes: -PREG75CA2 PO; +PREG75CA3 PO
== END ==
LOC: M PLALAB 10:21
PROVIDERS: ATTEND Obstetrics & Gynecology
DX: N97.0 Female infertility associated with anovulation (principal)

== ENCOUNTER → 2022-12-27 | Outpatient (CLI) | payer OTHER ==
[2022-12-27 15:22] LABS: BASO # 0.1 10^3/uL (0.0-0.2); BASO % 0.5 % (0.0-1.0); EOS # 0.2 10^3/uL (0.0-0.5); EOS % 2.3 % (0.0-3.0); HEMATOCRIT 43.7 % (36.0-47.0); HEMOGLOBIN 13.8 g/dl (12.0-15.5); LYMPH % 21.5 % (24.0-44.0); MEAN CORPUSCULAR HEMOGLOBIN 27.3 pg (27.0-33.0); MEAN CORPUSCULAR HGB CONC 31.6 g/dl (32.0-36.5); MEAN CORPUSCULAR VOLUME 86.4 fl (80.0-96.0); MONO # 0.8 10^3/uL (0.0-0.8); MONO % 8.2 % (2.0-8.0); NEUTROPHILS # 6.2 10^3/uL (1.5-8.5); NEUTROPHILS % 67.1 % (36.0-66.0); PLATELET COUNT, AUTOMATED 303 10^3/uL (150-450); RED BLOOD COUNT 5.06 10^6/uL (4.00-5.40); WHITE BLOOD COUNT 9.3 10^3/uL (4.0-10.0)
[2022-12-27 15:23] LABS: APPEARANCE, URINE CLOUDY (CLEAR); BACTERIA, URINE AUTO 3+ (NEGATIVE); BILIRUBIN, URINE AUTO NEGATIVE (NEGATIVE); BLOOD, URINE BLOOD 1+ (NEGATIVE); COLOR, URINE YELLOW (YELLOW); GLUCOSE, URINE (UA) AUTO NEGATIVE (NEGATIVE); KETONE, URINE AUTO TRACE mg/dL (NEGATIVE); LEUKOCYTE ESTERASE, URINE AUTO NEGATIVE (NEGATIVE); MUCUS, URINE SMALL (NEGATIVE); NITRITE, URINE AUTO NEGATIVE (NEGATIVE); PROTEIN, URINE AUTO 1+ mg/dL (NEGATIVE); RBC, URINE AUTO 2 /HPF (0-3); SPECIFIC GRAVITY URINE AUTO 1.016 (1.002-1.035); SQUAMOUS EPITHELIAL CELL UR AU 28 /HPF (0-6); UROBILINOGEN, URINE AUTO 0.2 mg/dL (0.0-2.0); WBC, URINE AUTO 2 /HPF (0-3)
[2022-12-27 15:28] LABS: LDH LACTATE DEHYDROGENASE 152 U/L (120-246)
[2022-12-27 15:29] LABS: COMPLEMENT C3 193.7 MG/DL (84.0-160.0); COMPLEMENT C4 49.6 MG/DL (12-36); CPK CREATINE PHOSPHOKINASE 103 U/L (34-145); IMMUNOGLOBULIN A 157.8 MG/DL (40-350); IMMUNOGLOBULIN G 767 MG/DL (650-1600); IMMUNOGLOBULIN M 101.7 MG/DL (50-300)
[2022-12-27 15:30] LABS: ALBUMIN 3.7 G/DL (3.2-5.2); ALKALINE PHOSPHATASE 140 U/L (46-116); ALT/SGPT 42 U/L (7.0-40); AST/SGOT 14 U/L (<34); BILIRUBIN,TOTAL 0.2 MG/DL (0.3-1.2); BLOOD UREA NITROGEN 8 MG/DL (9-23); CALCIUM LEVEL 9.2 MG/DL (8.5-10.1); CARBON DIOXIDE LEVEL 28 MMOL/L (20-31); CHLORIDE LEVEL 107 MMOL/L (98-107); CREATININE FOR GFR 0.67 MG/DL (0.55-1.30); GLOMERULAR FILTRATION RATE > 60.0 (>60); GLUCOSE, FASTING 100 MG/DL (60-100); POTASSIUM SERUM 4.6 MMOL/L (3.5-5.1); SODIUM LEVEL 141 MMOL/L (136-145); TOTAL PROTEIN 6.7 G/DL (5.7-8.2)
[2022-12-27 15:36] LABS: ERYTHROCYTE SEDIMENTATION RATE 20 mm/hr (0-20)
[2022-12-27 15:45] LABS: TOTAL PROTEIN,RANDOM URINE 24.3 MG/DL (0.0-14.0)
[2022-12-27 15:50] LABS: CREATININE,RANDOM URINE 173.1 MG/DL
== END ==
LOC: M PLALAB 10:12
PROVIDERS: ATTEND Internal Medicine Rheumatology
DX: M35.3 Polymyalgia rheumatica (principal)

== ENCOUNTER → 2023-01-29 | Outpatient (CLI) | payer OTHER ==
[~2023-01-29] MED LIST changes: +CEFD300C41 PO; +FLUT50SP17; +IBUP80TA; +ONDA4TAB6; +TAMS1CAP17 PO
== END ==
LOC: M LAB 11:07
PROVIDERS: ATTEND Obstetrics & Gynecology
DX: N97.0 Female infertility associated with anovulation (principal)

== ENCOUNTER → 2023-01-30 | Outpatient (CLI) | payer OTHER ==
[2023-01-30 10:41] LABS: APPEARANCE, URINE HAZY (CLEAR); BACTERIA, URINE AUTO NEGATIVE (NEGATIVE); BILIRUBIN, URINE AUTO NEGATIVE (NEGATIVE); BLOOD, URINE BLOOD NEGATIVE (NEGATIVE); COLOR, URINE YELLOW (YELLOW); GLUCOSE, URINE (UA) AUTO NEGATIVE (NEGATIVE); KETONE, URINE AUTO NEGATIVE (NEGATIVE); LEUKOCYTE ESTERASE, URINE AUTO NEGATIVE (NEGATIVE); MUCUS, URINE SMALL (NEGATIVE); NITRITE, URINE AUTO NEGATIVE (NEGATIVE); PROTEIN, URINE AUTO 1+ mg/dL (NEGATIVE); RBC, URINE AUTO 1 /HPF (0-3); SQUAMOUS EPITHELIAL CELL UR AU 1 /HPF (0-6); UROBILINOGEN, URINE AUTO 0.2 mg/dL (0.0-2.0); WBC, URINE AUTO 2 /HPF (0-3)
[2023-01-30 10:41] LABS: BASO # 0.1 10^3/uL (0.0-0.2); BASO % 0.5 % (0.0-1.0); EOS # 0.2 10^3/uL (0.0-0.5); EOS % 1.6 % (0.0-3.0); HEMATOCRIT 44.8 % (36.0-47.0); HEMOGLOBIN 14.6 g/dl (12.0-15.5); LYMPH # 3.4 10^3/uL (1.5-5.0); LYMPH % 29.4 % (24.0-44.0); MEAN CORPUSCULAR HEMOGLOBIN 27.8 pg (27.0-33.0); MEAN CORPUSCULAR HGB CONC 32.6 g/dl (32.0-36.5); MEAN CORPUSCULAR VOLUME 85.3 fl (80.0-96.0); MONO % 8.6 % (2.0-8.0); NEUTROPHILS # 6.9 10^3/uL (1.5-8.5); NEUTROPHILS % 59.5 % (36.0-66.0); PLATELET COUNT, AUTOMATED 359 10^3/uL (150-450); RED BLOOD COUNT 5.25 10^6/uL (4.00-5.40); WHITE BLOOD COUNT 11.5 10^3/uL (4.0-10.0)
[2023-01-30 11:12] LABS: BLOOD UREA NITROGEN 13 MG/DL (9-23); CALCIUM LEVEL 9.6 MG/DL (8.5-10.1); CARBON DIOXIDE LEVEL 24 MMOL/L (20-31); CHLORIDE LEVEL 107 MMOL/L (98-107); CREATININE FOR GFR 0.62 MG/DL (0.55-1.30); GLOMERULAR FILTRATION RATE > 60.0 (>60); GLUCOSE, FASTING 99 MG/DL (60-100); POTASSIUM SERUM 4.4 MMOL/L (3.5-5.1); SODIUM LEVEL 138 MMOL/L (136-145)
== END ==
LOC: M RAD 10:05
PROVIDERS: ATTEND Family Medicine
DX: Z01.810 Encounter for preprocedural cardiovascular examination (principal)

== ENCOUNTER → 2023-02-07 | Outpatient (CLI) | payer OTHER ==
[~2023-02-07] MED LIST changes: -CEFD300C41 PO; +CEFD300C42 PO
[2023-02-07 19:46] LABS: ALBUMIN 3.6 G/DL (3.2-5.2); ALKALINE PHOSPHATASE 145 U/L (46-116); ALT/SGPT 40 U/L (7.0-40); AST/SGOT 21 U/L (<34); BILIRUBIN,TOTAL 0.4 MG/DL (0.3-1.2); BLOOD UREA NITROGEN 7 MG/DL (9-23); CARBON DIOXIDE LEVEL 27 MMOL/L (20-31); CHLORIDE LEVEL 109 MMOL/L (98-107); CREATININE FOR GFR 0.59 MG/DL (0.55-1.30); GLOMERULAR FILTRATION RATE > 60.0 (>60); GLUCOSE, FASTING 88 MG/DL (60-100); HCG, SERUM QUALITATIVE NEGATIVE (NEGATIVE); POTASSIUM SERUM 4.7 MMOL/L (3.5-5.1); SODIUM LEVEL 141 MMOL/L (136-145); TOTAL PROTEIN 6.6 G/DL (5.7-8.2)
== END ==
LOC: M LAB 18:50
PROVIDERS: ATTEND Physician Assistant Medical
DX: K76.0 Fatty (change of) liver, not elsewhere classified (principal); R11.0 Nausea

== ENCOUNTER 2023-02-08 08:43 | Day surgery (SDC) | payer OTHER ==
[~2023-02-08] VITALS: Ht 154.9 cm; Wt 98.0 kg
[~2023-02-08 08:43] MED LIST changes: +ceFAZolin SOD 2 GM in IV 1 EA IV ONE
[2023-02-08] MEDS ORDERED: LR 1,000 ML IV SCH (09:10)
[2023-02-08] MEDS ORDERED: MIDAZOLAM INJ 2MG/2ML VIAL As Ordered ONE ×2 (09:52→12:02)
[2023-02-08] MEDS ORDERED: fentaNYL 100 MCG/2 ML INJECTION As Ordered ONE (09:52)
[2023-02-08] MEDS ORDERED: ONDANSETRON 4MG 2ML VIAL As Ordered ONE (10:51)
[2023-02-08] MEDS ORDERED: propofoL 200 MG/20 ML VIAL As Ordered ONE (10:51)
[2023-02-08] MEDS ORDERED: LIDOCAINE 2% 100MG/5ML SDV (FOR ANES.) As Ordered ONE (10:51)
[2023-02-08] MEDS ORDERED: OXYC1TAB23 PO (11:56)
[2023-02-08 12:53] VITALS: BP 131/81; TEMP 98.2; O2SAT 98
== END 2023-02-08 13:28 | disposition home or self-care (01) ==
LOC: M SDC 08:43
PROVIDERS: ATTEND Urology
DX: N20.0 Calculus of kidney (principal); J45.909 Unspecified asthma, uncomplicated; G47.30 Sleep apnea, unspecified; Z90.49 Acquired absence of other specified parts of digestive tract; Z79.899 Other long term (current) drug therapy

== ENCOUNTER → 2023-03-02 | Outpatient (CLI) | payer OTHER ==
[~2023-03-02] MED LIST changes: -ceFAZolin SOD 2 GM in IV 1 EA IV ONE
== END ==
LOC: M PLALAB 15:17
PROVIDERS: ATTEND Obstetrics & Gynecology
DX: N97.9 Female infertility, unspecified (principal)

== ENCOUNTER → 2023-03-05 | Outpatient (CLI) | payer OTHER | LOC: M PLAIMG 09:35 | PROVIDERS: ATTEND Urology | DX: N20.0 Calculus of kidney (principal) ==

== ENCOUNTER 2023-08-30 06:16 | Day surgery (SDC) | payer OTHER ==
[~2023-08-30] VITALS: Ht 157.5 cm; Wt 99.3 kg
[~2023-08-30 06:16] MED LIST changes: +CEFD1CAP9 PO; -CEFD300C42 PO; -FLUT50SP17; +FLUTISP; +GNP650TA8 PO
[2023-08-30 07:12] LABS: HEMATOCRIT 41.6 % (36.0-47.0); MEAN CORPUSCULAR HEMOGLOBIN 28.3 pg (27.0-33.0); MEAN CORPUSCULAR HGB CONC 33.7 g/dl (32.0-36.5); MEAN CORPUSCULAR VOLUME 84.2 fl (80.0-96.0); PLATELET COUNT, AUTOMATED 292 10^3/uL (150-450); RED BLOOD COUNT 4.94 10^6/uL (4.00-5.40); WHITE BLOOD COUNT 8.6 10^3/uL (4.0-10.0)
[2023-08-30] MEDS ORDERED: ONDANSETRON 4MG 2ML VIAL As Ordered ONE (07:17)
[2023-08-30] MEDS ORDERED: ROCURONIUM BROMIDE 50MG/5ML VIAL As Ordered ONE (07:17)
[2023-08-30] MEDS ORDERED: propofoL 200 MG/20 ML VIAL As Ordered ONE (07:17)
[2023-08-30] MEDS ORDERED: LIDOCAINE 2% 100MG/5ML SDV (FOR ANES.) As Ordered ONE (07:17)
[2023-08-30] MEDS ORDERED: fentaNYL 250 MCG/5 ML INJECTION As Ordered ONE (07:17)
[2023-08-30] MEDS ORDERED: SUGAMMADEX SODIUM 500 MG/5 ML VIAL (BRIDION) As Ordered ONE (07:17)
[2023-08-30] MEDS ORDERED: KETOROLAC 60MG 2ML VIAL As Ordered ONE (07:18)
[2023-08-30] MEDS ORDERED: MIDAZOLAM INJ 2MG/2ML VIAL As Ordered ONE (07:18)
[2023-08-30] MEDS ORDERED: dexmedeTOMIDine (4MCG/ML)200MCG/50ML BTL (PRECEDEX) As Ordered ONE (07:27)
[2023-08-30] MEDS ORDERED: SEVOFLURANE INHAL SOLN 250 ML BTL As Ordered ONE (07:45)
[2023-08-30] MEDS ORDERED: ACETAMINOPHEN 1000MG 100ML IV BAG As Ordered ONE (08:07)
[2023-08-30] MEDS ORDERED: HYDROMORPHONE HCL 0.5 MG/ 0.5 ML SYRINGE IV PRN (08:45)
[2023-08-30] MEDS ORDERED: ONDANSETRON 4MG 2ML VIAL IV PRN (08:45)
[2023-08-30] MEDS ORDERED: LR 1,000 ML IV SCH ×2 (08:45→10:00)
[2023-08-30] MEDS: fentaNYL 100 MCG/2 ML INJECTION IV PRN (09:19)
[2023-08-30] MEDS: oxyCODONE 5MG TAB PO PRN (09:29)
[2023-08-30] MEDS ORDERED: PERCOCET 5MG/325MG TAB PO PRN (10:05)
[2023-08-30 10:52] VITALS: BP 113/69; TEMP 98.2; O2SAT 94
== END 2023-08-30 11:14 | disposition home or self-care (01) ==
LOC: M SDC 06:16
PROVIDERS: ATTEND Specialist
DX: E28.2 Polycystic ovarian syndrome (principal); K76.0 Fatty (change of) liver, not elsewhere classified; G47.30 Sleep apnea, unspecified; F17.290 Nicotine dependence, other tobacco product, uncomplicated; Z90.49 Acquired absence of other specified parts of digestive tract; Z88.7 Allergy status to serum and vaccine; Z87.820 Personal history of traumatic brain injury
CPT/HCPCS: 36415; 49322; 81025; 85027; J0131; J0665; J1100; J1885; J2250; J2405; J3010

== ENCOUNTER → 2023-09-27 | Outpatient (REF) | payer OTHER ==
[~2023-09-27] MED LIST changes: +ONDA-282; -ONDA4TAB6
== END ==
LOC: M SFHCWAGY 12:20
PROVIDERS: ATTEND Specialist
DX: N90.89 Other specified noninflammatory disorders of vulva and perineum (principal)

== ENCOUNTER → 2023-10-23 | Outpatient (CLI) | payer OTHER ==
[2023-10-23 15:57] LABS: FOLLICLE STIMULATING HORMONE 4.1 mIU/ML; LUTEINIZING HORMONE 8.2 mIU/ML; PROGESTERONE 5.02 NG/ML
== END ==
LOC: M PLALAB 12:58
PROVIDERS: ATTEND Specialist
DX: N90.89 Other specified noninflammatory disorders of vulva and perineum (principal)

== ENCOUNTER → 2023-11-24 | Outpatient (CLI) | payer OTHER, SELFPAY ==
[2023-11-24 15:24] LABS: FOLLICLE STIMULATING HORMONE 1.9 mIU/ML; LUTEINIZING HORMONE 3.2 mIU/ML
[2023-11-24 15:25] LABS: PROGESTERONE 25.59 NG/ML
== END ==
LOC: M LAB 14:08
PROVIDERS: ATTEND Specialist
DX: N92.6 Irregular menstruation, unspecified (principal)

== ENCOUNTER → 2024-02-27 | Outpatient (CLI) | payer OTHER ==
[~2024-02-27] MED LIST changes: +GABA-1172 PO; -GABA-282 PO
[2024-02-27 13:36] LABS: FOLLICLE STIMULATING HORMONE 3.2 mIU/ML; LUTEINIZING HORMONE 8.1 mIU/ML
[2024-02-27 13:37] LABS: PROGESTERONE 12.24 NG/ML
== END ==
LOC: M LAB 11:56
PROVIDERS: ATTEND Specialist
DX: N92.6 Irregular menstruation, unspecified (principal)

== ENCOUNTER → 2024-03-31 | Outpatient (CLI) | payer OTHER ==
[~2024-03-31] MED LIST changes: -CYCL5TAB PO; +CYCL5TAB4 PO; -LACT10SO3; +LACT10SO94; -[UNRECOGNIZED DRUG - CODE] PO; +[UNRECOGNIZED DRUG - OTHER] PO
[2024-03-31 18:00] LABS: FOLLICLE STIMULATING HORMONE 8.9 mIU/ML; LUTEINIZING HORMONE 39.4 mIU/ML
[2024-03-31 18:11] LABS: PROGESTERONE 0.89 NG/ML
== END ==
LOC: M LAB 16:48
PROVIDERS: ATTEND Specialist
DX: N92.6 Irregular menstruation, unspecified (principal)

== ENCOUNTER → 2024-06-03 | Outpatient (CLI) | payer OTHER ==
[2024-06-03 11:30] LABS: BASO % 0.4 % (0.0-1.0); EOS # 0.2 10^3/uL (0.0-0.5); EOS % 2.1 % (0.0-3.0); HEMATOCRIT 41.7 % (36.0-47.0); HEMOGLOBIN 13.6 g/dl (12.0-15.5); LYMPH # 2.1 10^3/uL (1.5-5.0); LYMPH % 26.3 % (24.0-44.0); MEAN CORPUSCULAR HEMOGLOBIN 28.9 pg (27.0-33.0); MEAN CORPUSCULAR HGB CONC 32.6 g/dl (32.0-36.5); MEAN CORPUSCULAR VOLUME 88.7 fl (80.0-96.0); MONO # 0.6 10^3/uL (0.0-0.8); MONO % 7.9 % (2.0-8.0); NEUTROPHILS % 62.8 % (36.0-66.0); PLATELET COUNT, AUTOMATED 249 10^3/uL (150-450)
[2024-06-03 11:48] LABS: ERYTHROCYTE SEDIMENTATION RATE 10 mm/hr (0-20)
[2024-06-03 12:04] LABS: C REACTIVE PROTEIN QUANTITATIV 1.02 MG/DL (<1.0)
[2024-06-03 12:05] LABS: ALBUMIN 3.2 G/DL (3.2-5.2); ALKALINE PHOSPHATASE 158 U/L (35-104); ALT/SGPT 46 U/L (7.0-40); AST/SGOT 19 U/L (<34); BILIRUBIN,TOTAL 0.2 MG/DL (0.3-1.2); BLOOD UREA NITROGEN 10 MG/DL (9-23); CALCIUM LEVEL 9.4 MG/DL (8.5-10.1); CARBON DIOXIDE LEVEL 28 MMOL/L (20-31); CHLORIDE LEVEL 109 MMOL/L (98-107); CREATININE FOR GFR 0.55 MG/DL (0.55-1.30); GLOMERULAR FILTRATION RATE > 60.0 (>60); GLUCOSE, FASTING 116 MG/DL (60-100); POTASSIUM SERUM 4.9 MMOL/L (3.5-5.1); SODIUM LEVEL 144 MMOL/L (136-145); TOTAL PROTEIN 6.4 G/DL (5.7-8.2)
== END ==
LOC: M LAB 10:53
PROVIDERS: ATTEND Physician Assistant Medical
DX: M54.9 Dorsalgia, unspecified (principal)

== ENCOUNTER → 2024-07-04 | Outpatient (CLI) | payer OTHER ==
[2024-07-04 14:01] LABS: APPEARANCE, URINE CLOUDY (CLEAR); BACTERIA, URINE AUTO 3+ (NEGATIVE); BILIRUBIN, URINE AUTO NEGATIVE (NEGATIVE); BLOOD, URINE BLOOD 1+ (NEGATIVE); COLOR, URINE AMBER (YELLOW); GLUCOSE, URINE (UA) AUTO NEGATIVE (NEGATIVE); KETONE, URINE AUTO NEGATIVE (NEGATIVE); LEUKOCYTE ESTERASE, URINE AUTO 1+ (NEGATIVE); MUCUS, URINE SMALL (NEGATIVE); NITRITE, URINE AUTO NEGATIVE (NEGATIVE); PROTEIN, URINE AUTO 1+ mg/dL (NEGATIVE); RBC, URINE AUTO 9 /HPF (0-3); SPECIFIC GRAVITY URINE AUTO 1.025 (1.002-1.035); SQUAMOUS EPITHELIAL CELL UR AU 14 /HPF (0-6); UROBILINOGEN, URINE AUTO 0.2 mg/dL (0.0-2.0); WBC, URINE AUTO 9 /HPF (0-3)
== END ==
LOC: M RAD 12:59
PROVIDERS: ATTEND Physician Assistant
DX: Z01.818 Encounter for other preprocedural examination (principal)

== ENCOUNTER → 2024-07-11 | Outpatient (CLI) | payer OTHER ==
[~2024-07-11] MED LIST changes: +HYDR-3713 PO
[2024-07-11 14:57] LABS: FOLLICLE STIMULATING HORMONE 4.6 mIU/ML
[2024-07-11 14:58] LABS: LUTEINIZING HORMONE 12.3 mIU/ML; PROGESTERONE 0.38 NG/ML
== END ==
LOC: M PLALAB 10:38
PROVIDERS: ATTEND Specialist
DX: N97.0 Female infertility associated with anovulation (principal)

== ENCOUNTER → 2024-07-11 | Outpatient (CLI) | payer OTHER ==
[2024-07-11 14:29] LABS: BASO # 0.1 10^3/uL (0.0-0.2); BASO % 0.5 % (0.0-1.0); EOS # 0.2 10^3/uL (0.0-0.5); EOS % 1.9 % (0.0-3.0); HEMATOCRIT 42.5 % (36.0-47.0); HEMOGLOBIN 13.9 g/dl (12.0-15.5); LYMPH # 2.6 10^3/uL (1.5-5.0); LYMPH % 26.2 % (24.0-44.0); MEAN CORPUSCULAR HEMOGLOBIN 29.1 pg (27.0-33.0); MEAN CORPUSCULAR HGB CONC 32.7 g/dl (32.0-36.5); MEAN CORPUSCULAR VOLUME 88.9 fl (80.0-96.0); MONO # 0.8 10^3/uL (0.0-0.8); MONO % 7.6 % (2.0-8.0); NEUTROPHILS # 6.2 10^3/uL (1.5-8.5); NEUTROPHILS % 63.2 % (36.0-66.0); PLATELET COUNT, AUTOMATED 306 10^3/uL (150-450); RED BLOOD COUNT 4.78 10^6/uL (4.00-5.40); WHITE BLOOD COUNT 9.9 10^3/uL (4.0-10.0)
[2024-07-11 14:52] LABS: ALBUMIN 3.4 G/DL (3.2-5.2); ALKALINE PHOSPHATASE 130 U/L (35-104); ALT/SGPT 47 U/L (7.0-40); AST/SGOT 25 U/L (<34); BILIRUBIN,TOTAL 0.2 MG/DL (0.3-1.2); BLOOD UREA NITROGEN 11 MG/DL (9-23); CALCIUM LEVEL 9.3 MG/DL (8.5-10.1); CARBON DIOXIDE LEVEL 27 MMOL/L (20-31); CHLORIDE LEVEL 106 MMOL/L (98-107); CREATININE FOR GFR 0.59 MG/DL (0.55-1.30); GLOMERULAR FILTRATION RATE > 60.0 (>60); GLUCOSE, FASTING 107 MG/DL (60-100); POTASSIUM SERUM 4.1 MMOL/L (3.5-5.1); SODIUM LEVEL 143 MMOL/L (136-145); TOTAL PROTEIN 6.7 G/DL (5.7-8.2)
[2024-07-11 14:56] LABS: FREE T4 1.08 NG/DL (0.89-1.76)
[2024-07-11 14:57] LABS: THYROID STIMULATING HORMONE 2.239 uIU/ML (0.55-4.78)
[2024-07-11 14:58] LABS: HEMOGLOBIN A1c 5.2 % (4.0-6.0)
[2024-07-11 14:59] LABS: VITAMIN B12 LEVEL 204 PG/ML (211-911)
== END ==
LOC: M PLALAB 10:41
PROVIDERS: ATTEND Family Medicine
DX: N93.9 Abnormal uterine and vaginal bleeding, unspecified (principal); R73.01 Impaired fasting glucose

== ENCOUNTER 2024-07-14 10:34 | Day surgery (SDC) | payer OTHER ==
[~2024-07-14] VITALS: Ht 154.9 cm; Wt 104.7 kg
[2024-07-14] MEDS ORDERED: LR 1,000 ML IV SCH ×2 (10:40→12:35)
[2024-07-14] MEDS ORDERED: ONDANSETRON 4MG 2ML VIAL As Ordered ONE (11:50)
[2024-07-14] MEDS ORDERED: propofoL 200 MG/20 ML VIAL As Ordered ONE (11:50)
[2024-07-14] MEDS ORDERED: LIDOCAINE 2% 100MG/5ML SDV (FOR ANES.) As Ordered ONE (11:50)
[2024-07-14] MEDS ORDERED: fentaNYL 100 MCG/2 ML INJECTION As Ordered ONE (11:50)
[2024-07-14] MEDS ORDERED: MIDAZOLAM INJ 2MG/2ML VIAL As Ordered ONE (11:50)
[2024-07-14] MEDS ORDERED: KETOROLAC 30 MG/ML 1ML VIAL As Ordered ONE (11:53)
[2024-07-14] MEDS: ceFAZolin SOD 2 GM IV ONCE IV ONE (12:04)
[2024-07-14] MEDS: ISOVUE-300 61% 100ML VIAL As Ordered ONE (12:15)
[2024-07-14] MEDS ORDERED: ONDANSETRON 4MG 2ML VIAL IV PRN (12:35)
[2024-07-14] MEDS ORDERED: PYRI1TAB5 PO (12:40)
[2024-07-14] MEDS ORDERED: OXYB5TAB14 PO (12:40)
[2024-07-14] MEDS ORDERED: MACR100C43 PO (12:40)
[2024-07-14] MEDS: fentaNYL 100 MCG/2 ML INJECTION IV PRN (12:49)
[2024-07-14] MEDS: oxyCODONE 5MG TAB PO PRN (13:01)
[2024-07-14] MEDS: HYDROMORPHONE HCL 0.5 MG/ 0.5 ML SYRINGE IV PRN (13:02)
[2024-07-14 14:40] VITALS: BP 139/82; TEMP 97.5; O2SAT 96
== END 2024-07-14 14:48 | disposition home or self-care (01) ==
LOC: M SDC 10:34
PROVIDERS: ATTEND Urology
DX: N20.1 Calculus of ureter (principal); K76.0 Fatty (change of) liver, not elsewhere classified; N93.9 Abnormal uterine and vaginal bleeding, unspecified; J45.20 Mild intermittent asthma, uncomplicated; Z87.440 Personal history of urinary (tract) infections; Z79.899 Other long term (current) drug therapy; G47.33 Obstructive sleep apnea (adult) (pediatric); Z90.89 Acquired absence of other organs; Z87.891 Personal history of nicotine dependence; Z88.7 Allergy status to serum and vaccine
CPT/HCPCS: 52356; 76000; 81025; 82365; C2617; J0690; J1100; J1171; J1885; J2250; J2405; J3010; Q9967

== ENCOUNTER → 2025-01-28 | Outpatient (REF) | payer OTHER ==
[~2025-01-28] MED LIST changes: -FLOM0.4C39 PO; -IBUP-1022 PO; +IBUP600T42 PO; +MACR100C43 PO; +OXYB5TAB14 PO; +TAMS-18 PO
== END ==
LOC: M PLALAB 12:44
PROVIDERS: ATTEND Specialist
DX: Z12.4 Encounter for screening for malignant neoplasm of cervix (principal)

== ENCOUNTER → 2025-01-28 | Outpatient (CLI) | payer OTHER ==
[2025-01-28 15:41] LABS: FREE T4 1.16 NG/DL (0.89-1.76); PROLACTIN 6.51 NG/ML
[2025-01-28 15:43] LABS: ESTRADIOL 53.6 PG/ML; LUTEINIZING HORMONE 14.8 mIU/ML; PROGESTERONE 0.42 NG/ML
[2025-02-01 17:38] LABS: TESTOSTERONE FREE (DIRECT) 5.8 pg/mL (0.1-6.4); TESTOSTERONE TOTAL FOR T&D 28.0 ng/dL (2-45)
== END ==
LOC: M PLALAB 13:14
PROVIDERS: ATTEND Specialist
DX: N92.6 Irregular menstruation, unspecified (principal)